=== PATIENT | female | born 1990 | race Asian ===

== ENCOUNTER 2019-01-24 05:36 | Inpatient (IN) | payer MEDICAID, OTHER ==
[~2019-01-24] VITALS: Ht 167.6 cm; Wt 95.2 kg
[2019-01-24] MEDS ORDERED: ONDANSETRON 4 MG INJ IV STA (07:30)
[2019-01-24] MEDS ORDERED: SODIUM CHLORIDE 0.9% 1L BAG IV* STA (07:30)
[2019-01-24] MEDS ORDERED: morphine 4 MG/ML VIAL IV STA ×2 (07:30→08:38)
--- NOTE | 2019-01-24 08:38 | ERD ---
ER Documentation Chief Complaint Chief Complaint abscess back of neck x 4 days. HPI This is a 28-year-old female with a past medical history of insulin-dependent diabetes mellitus who is presenting with fever, chills, palpitations and neck pain related to redness and swelling to the back of the neck. She is concerned that she could have an abscess to the back of the neck. Her symptoms started 4 days ago. The patient does endorse nausea with multiple episodes of nonbilious nonbloody vomiting. She does not endorse any abdominal pain or diarrhea. She endorses feeling dehydrated and thirsty. She denies any polyuria or dysuria or hematuria or urgency or frequency. She does not endorse any alleviating or exacerbating factors. The patient has had no headache or vision changes. The patient does not endorse back pain. The patient denies lightheadedness or dizziness. The patient has had no chest pain or trouble breathing. The patient has had no focal deficits. The patient has had no weakness or numbness or tingling to the face or extremities. ROS All systems reviewed and are negative except as per history of present illness. Medications Home Meds Reported Medications Insulin Glargine,Hum.rec.anlog (Basaglar Kwikpen U-100) 100 Unit/1 Ml Insuln.pen, 125 UNIT SC QHS, EA 01/24/19 Insulin Lispro (Humalog Kwikpen) 200 Unit/1 Ml Insuln.pen, 20-30 UNIT SQ WITH MEALS BEDTIME, EA 01/24/19 Allergies Allergies: Coded Allergies: No Known Allergy (Unverified , 01/24/19) PMhx/Soc History of Surgery: No Anesthesia Reaction: No Hx Neurological Disorder: No Hx Respiratory Disorders: No Hx Cardiac Disorders: No Hx Psychiatric Problems: No Hx Miscellaneous Medical Probl: Yes (Insulin-dependent diabetes) Hx Alcohol Use: No Hx Substance Use: No Hx Tobacco Use: No Smoking Status: Never smoker FmHx Family History: No diabetes Physical Exam Vitals Vital Signs Date Temp Pulse Resp B/P (MAP) Pulse Ox O2 O2 Flow FiO2 Time Delivery Rate 01/24/19 99.0 145 18 130/92 100 Room Air 12:00 (105) 01/24/19 99.0 149 20 92/70 (77) 100 Room Air 11:00 01/24/19 98.6 141 20 144/95 100 Room Air 10:00 (111) 01/24/19 98.4 144 22 136/84 100 Room Air 09:00 (101) 01/24/19 150 06:47 01/24/19 98.4 145 18 143/90 97 05:49 (107) Physical Exam Const: Emotional distress, well-developed, well-nourished Head: Normocephalic, Atraumatic Eyes: Normal Conjunctiva. Extraocular movements intact. ENT: Normal External Ears, Nose and Mouth. Neck: Full range of motion. No meningismus. Resp: Clear to auscultation bilaterally, No wheezes, rales or rhonchi Cardio: Regular rhythm. Tachycardia. No murmurs, rubs or gallops Abd: Soft, non tender, non distended. Normal bowel sounds Skin: No petechiae or rashes Back: No midline tenderness. No CVA tenderness Ext: No cyanosis, or edema. 5 cm erythematous indurated purulent posterior neck mass without fluctuance. Neur: Awake and alert, oriented 4. Cranial nerves intact. No facial droop. Normal strength, sensation and coordination. Psych: Anxious Result Diagram: 01/24/19 0830 01/24/19 1140 Results 24 hrs Laboratory Tests Test 01/24/19 05:55 01/24/19 07:30 01/24/19 07:50 01/24/19 07:56 Bedside Glucose 311 mg/dL 393 mg/dL Blood Gas Blood venous Specimen Source Arterial Blood 01/24/2019 8:24 Date Drawn :58 AM Arterial Blood VENOUS LINE Gas Puncture Site Schuyler Test N/A Venous Blood pH 7.070 Venous Blood 26.4 mmHG pCO2 (Temp Corrected ) Venous Blood 34.6 mmHG pO2 (Temp Corrected ) Venous Blood 7.5 mmol/L HCO3 Venous Blood 63.8 mmHG Oxygen Saturation Venous Blood -21.3 mmol/L Base Excess Venous Blood 15.9 g/dl Total Hemoglobin Venous Blood 63.1 % Oxyhemoglobin Venous Blood 0.1 % Methemoglobin Carboxyhemoglob 1.0 % in Blood Gas 37.0 C Temperature Blood Gas ROOM AIR Modality FiO2 21.0 % Blood Gas DR. LARSEN Critical Value Read Back Blood Gas Keisha Notified Whom Blood Gas 01/24/2019 8:31 Notified Time :29 AM Urine Color YELLOW Urine Clarity SLIGHTLY CLOUD Y Urine pH 5.0 Urine Specific 1.026 [place] Urine Ketones 2+ mg/dL Urine Nitrite NEGATIVE mg/dL Urine Bilirubin NEGATIVE mg/dL Urine NEGATIVE mg/dL Urobilinogen Urine Leukocyte NEGATIVE James/u Esterase l Urine 1 /HPF Microscopic RBC Urine 2 /HPF Microscopic WBC Urine Squamous FEW /HPF Epithelial Cell s Urine Mucus FEW /HPF Urine 1+ mg/dL Hemoglobin Urine Glucose 3+ mg/dL Urine Total 3+ mg/dl Protein Test 01/24/19 08:01 01/24/19 08:30 01/24/19 09:06 01/24/19 09:15 POC Beta HCG, NEGATIVE Qualitative White Blood 25.8 10^3/ul Count Red Blood Count 5.09 10^6/ul Hemoglobin 14.2 g/dl Hematocrit 45.1 % Mean 88.6 fl Corpuscular Volume Mean 27.9 pg Corpuscular Hemoglobin Mean 31.5 g/dl Corpuscular Hemoglobin Conc ent Red Cell 11.7 % Distribution Width Platelet Count 426 10^3/UL Mean Platelet 9.9 fl Volume Immature 2.100 % Granulocytes % Neutrophils % 87.8 % Lymphocytes % 4.5 % Monocytes % 5.3 % Eosinophils % 0.0 % Basophils % 0.3 % Nucleated Red 0.0 /100WBC Blood Cells % Immature 0.530 10^3/ul Granulocytes # Neutrophils # 22.7 10^3/ul Lymphocytes # 1.2 10^3/ul Monocytes # 1.4 10^3/ul Eosinophils # 0.0 10^3/ul Basophils # 0.1 10^3/ul Nucleated Red 0.0 10^3/ul Blood Cells # Prothrombin 13.4 Sec Time Prothrombin 1.0 Time Ratio INR 1.01 International Normalized Rati o Sodium Level 135 mmol/L Potassium Level 5.4 mmol/L Chloride Level 105 mmol/L Carbon Dioxide 7 mmol/L Level Anion Gap 23 Blood Urea 10 mg/dl Nitrogen Creatinine 0.69 mg/dl Est Glomerular > 60 mL/min Filtrat Rate mL/min Glucose Level 390 mg/dl Hemoglobin A1c 10.1 % Calcium Level 9.6 mg/dl Phosphorus 3.2 mg/dl Level Magnesium Level 2.1 mg/dl Total Bilirubin 0.3 mg/dl Direct 0.00 mg/dl Bilirubin Indirect 0.3 mg/dl Bilirubin Aspartate Amino 13 IU/L Transf (AST/SGO T) Alanine 15 IU/L Aminotransferas e (ALT/SGPT) Alkaline 119 IU/L Phosphatase Troponin I < 0.012 ng/ml Total Protein 9.7 g/dl Albumin 4.8 g/dl Globulin 4.90 g/dl Albumin/Globuli 0.97 n Ratio POC Venous 1.5 mmol/L 1.4 mmol/L Lactate Test 01/24/19 11:15 01/24/19 11:40 01/24/19 13:00 01/24/19 13:15 Blood Gas Blood venous Blood venous Specimen Source Arterial Blood 01/24/2019 11:39 01/24/2019 1:44 Date Drawn :40 AM :19 PM Arterial Blood VENOUS LINE VENOUS LINE Gas Puncture Site Schuyler Test N/A N/A Venous Blood pH 7.057 7.074 Venous Blood 21.7 mmHG 22.7 mmHG pCO2 (Temp Corrected ) Venous Blood 66.3 mmHG 47.4 mmHG pO2 (Temp Corrected ) Venous Blood 6.0 mmol/L 6.5 mmol/L HCO3 Venous Blood 91.5 mmHG 82.1 mmHG Oxygen Saturation Venous Blood -22.8 mmol/L -22.0 mmol/L Base Excess Venous Blood 15.3 g/dl 14.5 g/dl Total Hemoglobin Venous Blood 90.0 % 81.2 % Oxyhemoglobin Venous Blood 0.3 % 0.3 % Methemoglobin Carboxyhemoglob 1.3 % 0.8 % in Blood Gas 37.0 C 37.0 C Temperature Blood Gas ROOM AIR ROOM AIR Modality FiO2 21.0 % 21.0 % Blood Gas DR. CHAVA LARSEN Critical Value Read Back Blood Gas Keisha SONG Notified Whom Blood Gas 01/24/2019 11:45 01/24/2019 1:57 Notified Time :04 AM :46 PM Sodium Level 138 mmol/L Potassium Level 4.8 mmol/L Chloride Level 109 mmol/L Carbon Dioxide 7 mmol/L Level Anion Gap 22 Blood Urea 10 mg/dl Nitrogen Creatinine 0.51 mg/dl Est Glomerular > 60 mL/min Filtrat Rate mL/min Glucose Level 359 mg/dl Lactic Acid 0.8 mmol/L Level Calcium Level 9.1 mg/dl Phosphorus 3.0 mg/dl Level Magnesium Level 2.1 mg/dl Urine Color STRAW Urine Clarity CLEAR Urine pH 5.0 Urine Specific 1.020 [place] Urine Ketones 2+ mg/dL Urine Nitrite NEGATIVE mg/dL Urine Bilirubin NEGATIVE mg/dL Urine NEGATIVE mg/dL Urobilinogen Urine Leukocyte NEGATIVE James/u Esterase l Urine 1 /HPF Microscopic RBC Urine 0 /HPF Microscopic WBC Urine Mucus FEW /HPF Urine 1+ mg/dL Hemoglobin Urine Glucose 3+ mg/dL Urine Total 2+ mg/dl Protein Current Medications Medications Dose Sig/Olivia Start Time Status Last (Trade) Ordered Route PRN Stop Time Admin Dose Reason Admin Morphine 4 mg ONCE STAT 01/24/19 DC 01/24/19 Sulfate IV 07:30 08:14 (morphine) 01/24/19 07:37 Ondansetron 4 mg ONCE STAT 01/24/19 DC 01/24/19 HCl (Zofran IV 07:30 08:14 Inj) 01/24/19 07:37 Sodium 2,690 ml BOLUS OVER 2 01/24/19 DC 01/24/19 Chloride HOURS STAT 07:30 08:14 (NS) IV* 01/24/19 07:37 Morphine 4 mg ONCE STAT 01/24/19 DC 01/24/19 Sulfate IV 08:38 08:41 (morphine) 01/24/19 08:39 Lidocaine 5 ml ONCE ONCE 01/24/19 DC (Xylocaine SC 09:00 1% (Mpf)) 01/24/19 09:01 Vancomycin 250 ml @ ONCE ONCE 01/24/19 DC 01/24/19 HCl 125 mls/hr IVPB 11:00 13:46 01/24/19 12:59 Potassium 1,000 ml @ Q0M IV 01/24/19 Chloride/Sodi 0 mls/hr 09:15 um Chloride Potassium 1,000 ml @ Q0M IV 01/24/19 Chloride/Dext 0 mls/hr 09:15 alphonse/ Sod Cl Potassium 1,000 ml @ Q0M IV 01/24/19 Chloride/Sodi 0 mls/hr 09:15 um Chloride Potassium 1,000 ml @ Q0M IV 01/24/19 Chloride/Dext 0 mls/hr 09:15 alphonse/ Sod Cl Sodium 1,000 ml @ Q0M IV 01/24/19 Chloride 0 mls/hr 09:15 1,000 ml @ Q0M IV 01/24/19 Dextrose/Sodi 0 mls/hr 09:15 um Chloride Insulin 101 ml @ ER DKA 01/24/19 Human 9.05 mls/hr PROTOCOL IV 09:30 Regular 100 unit/ Sodium Chloride Lactated 900 ml @ ONCE ONCE 01/24/19 DC 01/24/19 Ringer's 900 mls/hr IV 09:30 13:46 01/24/19 10:29 HYPOGLYCEM 01/24/19 Miscellaneous HYPOGLYCEMIA PROTOCOL PRN 09:30 TREATMENT XX Information .HYPOGLYCEMIA (* PROTOCOL Miscellaneous Pharmacy Order) Dextrose 50 ml Q15M PRN 01/24/19 (D50w IV 09:30 Syringe) .DECREASED GLUCOSE Dextrose 25 ml Q15M PRN 01/24/19 (D50w IV 09:30 Syringe) .DECREASED GLUCOSE Cefepime HCl 50 ml @ ONCE ONCE 01/24/19 DC 01/24/19 100 mls/hr IVPB 10:00 10:10 01/24/19 10:29 IV Flush 10 ml STK-MED 01/24/19 DC (NS 10 ml) ONCE .ROUTE 09:18 01/24/19 09: Sodium 0 ml @ ud STK-MED 01/24/19 DC Chloride ONCE .ROUTE 09:01/24/19 09:19 Iohexol 150 ml STK-MED 01/24/19 DC (Omnipaque ONCE .ROUTE 09: 300mg/ ml) 01/24/19 09:19 Ondansetron 4 mg ER BRIDGE 01/24/19 HCl (Zofran PRN IV 10:30 Inj) NAUSEA/VOMITI 01/25/19 10:29 NG 650 mg ER BRIDGE 01/24/19 Acetaminophen PRN PO 10:30 (Tylenol .MILD PAIN 01/25/19 10:29 Tab) 1-3 OR TEMP Dextrose 50 ml Q15M PRN 01/24/19 UNV (D50w IV For BS 50 11:00 Syringe) or less Dextrose 25 ml Q15M PRN 01/24/19 UNV (D50w IV BS 11:00 Syringe) between 50-70 Diagnostic 1 ea Q1H XX 01/24/19 UNV Test (Pha) 11:00 (Accu-Chek) HYPOGLYCEM 01/24/19 UNV Miscellaneous HYPOGLYCEMIA PROTOCOL PRN 11:00 TREATMENT XX Information Hypoglycemia (* (BS < 70) Miscellaneous Pharmacy Order) Potassium 1,000 ml @ Q0M IV 01/24/19 UNV Chloride/Sodi 0 mls/hr 10:52 um Chloride Potassium 1,000 ml @ Q0M IV 01/24/19 UNV Chloride/Dext 0 mls/hr 10:52 alphonse/ Sod Cl Potassium 1,000 ml @ Q0M IV 01/24/19 UNV Chloride/Sodi 0 mls/hr 10:52 um Chloride Potassium 1,000 ml @ Q0M IV 01/24/19 UNV Chloride/Dext 0 mls/hr 10:52 alphonse/ Sod Cl Sodium 1,000 ml @ Q0M IV 01/24/19 UNV Chloride 0 mls/hr 10:52 1,000 ml @ Q0M IV 01/24/19 UNV Dextrose/Sodi 0 mls/hr 10:52 um Chloride Insulin 101 ml @ DKA 01/24/19 UNV Human 9.05 mls/hr PROTOCOL IV 11:00 Regular 100 unit/ Sodium Chloride Please ONCE ONCE 01/24/19 UNV Miscellaneous discontinue XX 11:00 ... 01/24/19 11:01 Information (* Miscellaneous Pharmacy Order) IV Flush 3 ml PER 01/24/19 UNV (NS 3 ml) PROTOCOL IV 11:00 Ondansetron 4 mg Q6H PRN 01/24/19 UNV HCl (Zofran IV 11:00 Inj) NAUSEA/VOMITI NG 650 mg Q6H PRN 01/24/19 UNV Acetaminophen PO .PAIN 1-3 11:00 (Tylenol OR TEMP Tab) 1 tab Q6H PRN 01/24/19 UNV Acetaminophen PO .PAIN 4-6 11:00 / Hydrocodone Bitart ([place] (5/325)) Morphine 2 mg Q4H PRN 01/24/19 UNV Sulfate IV .PAIN 11:00 (morphine) 7-10 Famotidine 20 mg Q12 IV 01/24/19 UNV (Pepcid Iv) 21:00 Vancomycin VANCOMYCIN PER 01/24/19 UNV HCl (Vanco PER PHARMACY PROTOCOL XX 11:30 Iv Per Pharmacy) Piperacillin 100 ml @ Q6 IVPB 01/24/19 UNV Sod/ 200 mls/hr 12:00 Tazobactam Sod Procedures/MDM MDM The patient's presentation warrants further investigation. Previous medical records, if available, were reviewed. LABS The patient's laboratory testing was obtained and reviewed. No emergent treatment was required unless described below. CBC: Leukocytosis, concerning for a systemic infection. Leukocytosis, likely reactive. No E/o anemia Chemistry: Severe anion gap metabolic acidosis in the setting of hyperglycemia, concerning for DKA. Mild hyperkalemia, does not require emergent treatment. No E/o renal failure or liver disease. PT/INR: No E/o significant coagulopathy Lactate: No E/o severe sepsis Troponin: No E/o acute ischemia Urine: No E/o acute infection or hematuria. Glucosuria and ketonuria. EKG EKG read by me: Rate/Rhythm: Sinus tachycardia at 138 bpm Intervals: Normal [place]: Normal Impression: No evidence of acute ischemia. Sinus tachycardia. IMAGING Imaging and Radiology interpretation reviewed. CXR FINDINGS: The lungs are clear. There is no pleural effusion or pneumothorax. The cardiac and mediastinal contours are within normal limits. IMPRESSION: No acute pulmonary abnormality. Electronically viewed and signed by Physician Zeinab on 01/24/2019 09:58 CT soft tissue neck FINDINGS: There is focal soft tissue swelling with subcutaneous stranding and overlying skin thickening at the posterior mid neck centered at the midline. A discrete fluid collection is not seen. No soft tissue gas or radiopaque foreign body is seen. The pharynx, and larynx are unremarkable. The thyroid is grossly unremarkable. The parapharyngeal and retropharyngeal spaces are clear. The par otid and submandibular glands are unremarkable. The imaged dyer and washer spaces are symmetric. The skull base is intact. The perivertebral space appears unremarkable. The orbits are unremarkable. The oral cavity structures appear unremarkable. The imaged mastoids and paranasal sinuses are grossly clear. The osseous structures are intact. The lung apices are clear. IMPRESSION: Focal soft tissue swelling/stranding at the posterior neck, without discrete fluid collection to suggest abscess seen on this noncontrast evaluation at this time. If there is persistent clinical concern, consider follow-up with ultrasound, or contrast enhanced CT. Electronically viewed and signed by .Shahzad Enriquez MD, on 01/24/2019 11:28 TREATMENT/DISPOSITION The patient's symptoms are concerning for multiple pathologies. The patient appears to be in DKA and was started on the DKA protocol in the emergency department. The patient endorses fever at home. She is tachycardic with a significant leukocytosis, meeting criteria for a systemic inflammatory response syndrome with an infectious source of cellulitis to the back of her neck. I do feel that the patient is septic and requires a full septic work-up. The patient does not have evidence of endorgan damage. She has no lactic acidosis. The pat ient is not in severe sepsis or septic shock. The on-call ENT surgeon, Dr. Calvo, was consulted on the case. He evaluated the patient in the hospital and did not feel that incision and drainage was necessary at this time. It does appear to be in the upper back. If necessary, he recommended consultation with general surgery. I do not feel that this is necessary at this time. The patient had poor IV access. We attempted multiple peripheral lines which were unsuccessful. The PIC team was unavailable in the emergency department and access was immediately necessary. We completed a central line emergently. The risks and benefits of placement were discussed with the patient and she verbally consented. Please see procedure note below. SEPSIS NOTE SIRS Criteria: Tachycardia, leukocytosis Infectious source: Cellulitis End organ damage indicated by: None SEPSIS MANAGEMENT Time to recognize sepsis: 0900. Time to recognize severe sepsis: No severe sepsis at this time. Time to recognize septic shock: No septic shock at this time. 3 HOUR BUNDLE Blood cultures x 2 before abx: Yes 30 ml/kg NS bolus completed Initial lactate 1.5 Repeat lactate 1.4 SEPTIC SHOCK ASSESSMENT: NO lactic acid > 4.0 NO persistent hypotension (SBP < 90 or 40 mmHg drop, MAP < 65) despite 30 L/kg IV fluid bolus Central Line Placement by me: Patient consented, sterilely draped, full prep, gown, glove, mask, time out performed. Anesthesia: 1% lidocaine locally Location: Right internal jugular vein Device: Multiple lumen Technique: Seldinger technique. Secured with suture. Results: Venous return from all ports with easy saline flush. No complications. Guide wire retrieved and disposed of. ED Ultrasound: Central line placed by me using concurrent ultrasound guidance. Chest X-ray 1V Interpreted by me: Central line in SVC but appears to require retraction by approximately 2 cm, Normal soft tissue, No evidence of pneumothorax. Central line was subsequently retracted by 2 cm. CRITICAL CARE Critical care time 35 minutes Emergent fluid management while maintaining close respiratory support. Provision of immediate and broad-spectrum antibiotic therapy. Simultaneous assessment for possible sources in order to direct targeted therapy. Consideration for invasive and chemical support to prevent cardiopulmonary collapse. Critical care time is independent of procedures performed. ADMISSION The patient will be admitted to panel in accordance with the patient's insurance. The patient was accepted by Dr. Olivera at 0920AM. Disclaimer: Inadvertent spelling and grammatical errors are likely due to EHR/dictation software use and do not reflect on the overall quality of patient care. Note that the electronic time recorded on this note does not necessarily reflect the actual time of the patient encounter. Departure Diagnosis: Primary Impression: Sepsis Sepsis type: sepsis due to unspecified organism Qualified Codes: A41.9 - Sepsis, unspecified organism Additional Impressions: Diabetic ketoacidosis Diabetes mellitus type: type 1 Diabetes mellitus complication detail: with out coma Qualified Codes: E10.10 - Type 1 diabetes mellitus with ketoacidosis without coma Cellulitis, neck Tachycardia Leukocytosis Leukocytosis type: unspecified Qualified Codes: D72.829 - Elevated white blood cell count, unspecified Hyperglycemia High anion gap metabolic acidosis Hyperkalemia Ketonuria Thrombocytosis Condition: Critical MELYSSA LARSEN MD Jan 24, 2019 08:38
[2019-01-24] MEDS ORDERED: LIDOCAINE 1% (MPF) 5 ML VIAL SC ONE (09:00)
[2019-01-24] MEDS ORDERED: INSU100I33 SC (09:05)
[2019-01-24] MEDS ORDERED: INSU200I SQ (09:05)
[2019-01-24] MEDS ORDERED: D10/0.45% NACL + KCL 30 MEQ 1,000 ML IV SCH ×2 (09:15→10:52)
[2019-01-24] MEDS ORDERED: NS + KCL 40 MEQ 1,000 ML IV SCH ×2 (09:15→10:52)
[2019-01-24] MEDS ORDERED: D10/0.45% NACL + KCL 40 MEQ 1,000 ML IV SCH ×2 (09:15→10:52)
[2019-01-24] MEDS ORDERED: SOD CHLORIDE 0.9% 1,000 ML IV SCH ×2 (09:15→10:52)
[2019-01-24] MEDS ORDERED: DEXTROSE 10%/0.45% NACL 1,000 ML IV SCH ×2 (09:15→10:52)
[2019-01-24] MEDS ORDERED: NS + KCL 30 MEQ 1,000 ML IV SCH ×2 (09:15→10:52)
[2019-01-24] MEDS ORDERED: SOD CHLORIDE 0.9% 0 ML ONE (09:18)
[2019-01-24] MEDS ORDERED: IOHEXOL 300MG/ML 150 ML BTL ONE (09:18)
[2019-01-24] MEDS ORDERED: INSULIN REGULAR, HUMAN 100 UNIT in SOD CHLORIDE 0.9% 100 ML IV SCH ×4 (09:30→11:00)
[2019-01-24] MEDS ORDERED: LACTATED RINGER'S 900 ML IV ONE (09:30)
[2019-01-24] MEDS ORDERED: DEXTROSE 50% 50 ML SYRINGE IV PRN ×4 (09:30→11:00)
[2019-01-24] MEDS ORDERED: CEFEPIME 1GM/50 ML (PMX) 50 ML IVPB ONE (10:00)
[2019-01-24] MEDS ORDERED: ONDANSETRON 4 MG INJ IV PRN ×2 (10:30→11:00)
[2019-01-24] MEDS ORDERED: ACETAMINOPHEN 325 MG TAB PO PRN ×2 (10:30→11:00)
[2019-01-24] MEDS ORDERED: VANCOMYCIN 1 GM (PMX) 250 ML IVPB ONE (11:00)
[2019-01-24] MEDS ORDERED: NACL 0.9% 3 ML SYG IV SCH (11:00)
[2019-01-24] MEDS: ACCU-CHEK XX SCH ×13 (11:00→23:00)
[2019-01-24] MEDS ORDERED: VANCOMYCIN IV PER PHARMACY XX SCH (11:30)
--- NOTE | 2019-01-24 12:37 | HP ---
Date/Time of Note Date/Time of Note DATE: 01/24/19 TIME: 12:37 Assessment/Plan VTE Prophylaxis Pharmacological prophylaxis: other Lines/Catheters IV Catheter Type (from Nrsg): Central Line Central line still needed: Yes Assessment/Plan Hospital Course Patient is a female the past medical history significant for insulin-dependent diabetes mellitus who presents to [facility] for neck pain with drainage. Patient states that she has had neck pain due to a pustular mass for approximately 4 days that is getting worse. Patient stated that this originally began with as a pimple. Patient currently is extremely weak and cannot speak in extensive sentences however is alert and oriented. Patient denies chest pain, shortness of breath, headache, abdominal pain, leg pain. Objective Physical exam General: Patient is laying in bed and answers questions appropriately Mentation: Patient is alert and oriented 4, Head: Normocephalic atraumatic Eyes: EOMI, pupils reactive to light Neck: Supple, nontender, midline Respiratory: Clear to auscultation bilaterally Cardiovascular: regular rate, no obvious murmurs Gastrointestinal: non-tender to palpation, bowel sounds heard. Neurological: Moves all extremities spontaneously Skin: Posterior neck erythema and swelling with mild drainage Assessment and plan Diabetic ketoacidosis -DKA protocol -ICU -Patient's initial ABG is mildly worse as there is no IV access so could not initiate DKA protocol, obtain central line and will initiate now Posterior neck cellulitis -ENT evaluated patient, no procedure necessary -CT not showing any abscess, just significant cellulitis -Broad-spectrum antibiotics -Infectious disease consulted Generalized weakness -Secondary to above DKA Disposition -Admit to ICU for DKA and continue broad-spectrum antibiotics for posterior neck cellulitis Result Diagram: 01/24/19 0830 01/24/19 1140 Results 24hrs Laboratory Tests Test 01/24/19 05:55 01/24/19 07:30 01/24/19 07:50 01/24/19 07:56 Bedside Glucose 311 H 393 H Blood Gas Blood venous Specimen Source Arterial Blood 01/24/2019 8:24: Date Drawn 58 AM Arterial Blood VENOUS LINE Gas Puncture Site Schuyler Test N/A Venous Blood pH 7.070 *L Venous Blood 26.4 L pCO2 (Temp Corrected ) Venous Blood 34.6 H pO2 (Temp Corrected ) Venous Blood 7.5 L HCO3 Venous Blood 63.8 Oxygen Saturation Venous Blood -21.3 L Base Excess Venous Blood 15.9 Total Hemoglobin Venous Blood 63.1 Oxyhemoglobin Venous Blood 0.1 Methemoglobin Carboxyhemoglob 1.0 in Blood Gas 37.0 Temperature Blood Gas ROOM AIR Modality FiO2 21.[address] LARSEN Critical Value Read Back Blood Gas Keisha Notified Whom Blood Gas 01/24/2019 8:31: Notified Time 29 AM Urine Color YELLOW Urine Clarity SLIGHTLY CLOUD Y A Urine pH 5.0 Urine Specific 1.026 [place] Urine Ketones 2+ H Urine Nitrite NEGATIVE Urine Bilirubin NEGATIVE Urine NEGATIVE Urobilinogen Urine Leukocyte NEGATIVE Esterase Urine 1 Microscopic RBC Urine 2 Microscopic WBC Urine Squamous FEW Epithelial Cell s Urine Mucus FEW A Urine 1+ H Hemoglobin Urine Glucose 3+ H Urine Total 3+ H Protein Test 01/24/19 08:01 01/24/19 08:30 01/24/19 09:06 01/24/19 09:15 POC Beta HCG, NEGATIVE Qualitative White Blood 25.8 H Count Red Blood Count 5.09 Hemoglobin 14.2 Hematocrit 45.1 Mean 88.6 Corpuscular Volume Mean 27.9 L Corpuscular Hemoglobin Mean 31.5 L Corpuscular Hemoglobin Conc ent Red Cell 11.7 Distribution Width Platelet Count 426 H Mean Platelet 9.9 Volume Immature 2.100 H Granulocytes % Neutrophils % 87.8 H Lymphocytes % 4.5 L Monocytes % 5.3 Eosinophils % 0.0 Basophils % 0.3 Nucleated Red 0.0 Blood Cells % Immature 0.530 H Granulocytes # Neutrophils # 22.7 H Lymphocytes # 1.2 Monocytes # 1.4 H Eosinophils # 0.0 Basophils # 0.1 Nucleated Red 0.0 Blood Cells # Prothrombin 13.4 Time Prothrombin 1.0 Time Ratio INR 1.01 International Normalized Rati o Sodium Level 135 Potassium Level 5.4 H Chloride Level 105 Carbon Dioxide 7 *L Level Anion Gap 23 H Blood Urea 10 Nitrogen Creatinine 0.69 Est Glomerular > 60 Filtrat Rate mL/min Glucose Level 390 H Hemoglobin A1c 10.1 H Calcium Level 9.6 Phosphorus 3.2 Level Magnesium Level 2.1 Total Bilirubin 0.3 Direct 0.00 Bilirubin Indirect 0.3 Bilirubin Aspartate Amino 13 L Transf (AST/SGO T) Alanine 15 Aminotransferas e (ALT/SGPT) Alkaline 119 Phosphatase Troponin I < 0.012 Total Protein 9.7 H Albumin 4.8 Globulin 4.90 H Albumin/Globuli 0.97 n Ratio POC Venous 1.5 1.4 Lactate Test 01/24/19 11:15 01/24/19 11:40 Blood Gas Blood venous Specimen Source Arterial Blood 01/24/2019 11:39 Date Drawn :40 AM Arterial Blood VENOUS LINE Gas Puncture Site Schuyler Test N/A Venous Blood pH 7.057 *L Venous Blood 21.7 L pCO2 (Temp Corrected ) Venous Blood 66.3 H pO2 (Temp Corrected ) Venous Blood 6.0 L HCO3 Venous Blood 91.5 H Oxygen Saturation Venous Blood -22.8 L Base Excess Venous Blood 15.3 Total Hemoglobin Venous Blood 90.0 Oxyhemoglobin Venous Blood 0.3 Methemoglobin Carboxyhemoglob 1.3 in Blood Gas 37.0 Temperature Blood Gas ROOM AIR Modality FiO2 21.[address] LARSEN Critical Value Read Back Blood Gas Keisha Notified Whom Blood Gas 01/24/2019 11:45 Notified Time :04 AM Sodium Level 138 Potassium Level 4.8 Chloride Level 109 Carbon Dioxide 7 *L Level Anion Gap 22 H Blood Urea 10 Nitrogen Creatinine 0.51 Est Glomerular > 60 Filtrat Rate mL/min Glucose Level 359 H Lactic Acid 0.8 Level Calcium Level 9.1 Phosphorus 3.0 Level Magnesium Level 2.1 HPI/ROS Admit Date/Time Admit Date/Time PMH/Family/Social Past Medical History Medications Current Medications Vancomycin HCl 250 ml @ 125 mls/hr ONCE ONCE IVPB ; Start 01/24/19 at 11:00; Stop 01/24/19 at 12:59 Potassium Chloride/Sodium Chloride 1,000 ml @ 0 mls/hr Q0M IV ; Start 01/24/19 at 09:15 Potassium Chloride/Dextrose/ Sod Cl 1,000 ml @ 0 mls/hr Q0M IV ; Start 01/24/19 at 09:15 Potassium Chloride/Sodium Chloride 1,000 ml @ 0 mls/hr Q0M IV ; Start 01/24/19 at 09:15 Potassium Chloride/Dextrose/ Sod Cl 1,000 ml @ 0 mls/hr Q0M IV ; Start 01/24/19 at 09:15 Sodium Chloride 1,000 ml @ 0 mls/hr Q0M IV ; Start 01/24/19 at 09:15 Dextrose/Sodium Chloride 1,000 ml @ 0 mls/hr Q0M IV ; Start 01/24/19 at 09:15 Insulin Human Regular 100 unit/ Sodium Chloride 101 ml @ 9.05 mls/hr ER DKA PROTOCOL IV ; Start 01/24/19 at 09:30 Miscellaneous Information (* Miscellaneous Pharmacy Order) HYPOGLYCEMIA TREATMEN T HYPOGLYCEM PROTOCOL PRN XX .HYPOGLYCEMIA PROTOCOL; Start 01/24/19 at 09:30 Dextrose (D50w Syringe) 50 ml Q15M PRN IV .DECREASED GLUCOSE; Start 01/24/19 at 09:30 Dextrose (D50w Syringe) 25 ml Q15M PRN IV .DECREASED GLUCOSE; Start 01/24/19 at 09:30 Ondansetron HCl (Zofran Inj) 4 mg ER BRIDGE PRN IV NAUSEA/VOMITING; Start 01/24/19 at 10:30; Stop 01/25/19 at 10:29 Acetaminophen (Tylenol Tab) 650 mg ER BRIDGE PRN PO .MILD PAIN 1-3 OR TEMP; Start 01/24/19 at 10:30; Stop 01/25/19 at 10:29 Dextrose (D50w Syringe) 50 ml Q15M PRN IV For BS 50 or less; Start 01/24/19 at 11:00; Status UNV Dextrose (D50w Syringe) 25 ml Q15M PRN IV BS between 50-70; Start 01/24/19 at 11:00; Status UNV Diagnostic Test (Pha) (Accu-Chek) 1 ea Q1H XX ; Start 01/24/19 at 11:00; Status UNV Miscellaneous Information (* Miscellaneous Pharmacy Order) HYPOGLYCEMIA TREATMENT HYPOGLYCEM PROTOCOL PRN XX Hypoglycemia (BS < 70); Start 01/24/19 at 11:00; Status UNV Potassium Chloride/Sodium Chloride 1,000 ml @ 0 mls/hr Q0M IV ; Start 01/24/19 at 10:52; Status UNV Potassium Chloride/Dextrose/ Sod Cl 1,000 ml @ 0 mls/hr Q0M IV ; Start 01/24/19 at 10:52; Status UNV Potassium Chloride/Sodium Chloride 1,000 ml @ 0 mls/hr Q0M IV ; Start 01/24/19 at 10:52; Status UNV Potassium Chloride/Dextrose/ Sod Cl 1,000 ml @ 0 mls/hr Q0M IV ; Start 01/24/19 at 10:52; Status UNV Sodium Chloride 1,000 ml @ 0 mls/hr Q0M IV ; Start 01/24/19 at 10:52; Status UNV Dextrose/Sodium Chloride 1,000 ml @ 0 mls/hr Q0M IV ; Start 01/24/19 at 10:52; Status UNV Insulin Human Regular 100 unit/ Sodium Chloride 101 ml @ 9.05 mls/hr DKA PROTOCOL IV ; Start 01/24/19 at 11:00; Status UNV Miscellaneous Information (* Miscellaneous Pharmacy Order) Please discontinue ... ONCE ONCE XX ; Start 01/24/19 at 11:00; Stop 01/24/19 at 11:01; Status UNV IV Flush (NS 3 ml) 3 ml PER PROTOCOL IV ; Start 01/24/19 at 11:00; Status UNV Ondansetron HCl (Zofran Inj) 4 mg Q6H PRN IV NAUSEA/VOMITING; Start 01/24/19 at 11:00; Status UNV Acetaminophen (Tylenol Tab) 650 mg Q6H PRN PO .PAIN 1-3 OR TEMP; Start 01/24/19 at 11:00; Status UNV Acetaminophen/ Hydrocodone Bitart ([place] (5/325)) 1 tab Q6H PRN PO .PAIN 4-6; Start 01/24/19 at 11:00; Status UNV Morphine Sulfate (morphine) 2 mg Q4H PRN IV .PAIN 7-10; Start 01/24/19 at 11:00; Status UNV Famotidine (Pepcid Iv) 20 mg Q12 IV ; Start 01/24/19 at 21:00; Status UNV Vancomycin HCl (Vanco Iv Per Pharmacy) VANCOMYCIN PER PHARMACY PER PROTOCOL XX ; Start 01/24/19 at 11:30; Status UNV Piperacillin Sod/ Tazobactam Sod 100 ml @ 200 mls/hr Q6 IVPB ; Start 01/24/19 at 12:00; Status UNV Coded Allergies: No Known Allergy (Unverified , 01/24/19) Social History Smoking Status: Never smoker Exam/Review of Systems Vital Signs Vitals Vital Signs Date Temp Pulse Resp B/P (MAP) Pulse Ox O2 O2 Flow FiO2 Time Delivery Rate 01/24/19 99.0 145 18 130/92 100 Room Air 12:00 (105) IRVIN LAZARO Jan 24, 2019 12:37
--- NOTE | 2019-01-24 13:45 | CONS ---
DATE OF ADMISSION: 01/24/2019 DATE OF CONSULTATION: 01/24/2019 TYPE OF CONSULTATION: Infectious disease. REASON FOR CONSULTATION: Antibiotic management. HISTORY OF PRESENT ILLNESS: Katie Noel is a 28-year-old female who comes in with an abscess in the back of her neck of 4 days' duration. She thinks that this may have been caused by an insect bite. PAST MEDICAL HISTORY: Negative. PAST SURGICAL HISTORY: None. SOCIAL HISTORY: She does not smoke, drink or abuse drugs. ALLERGIES: NONE TO PENICILLIN, SULFA OR FOODS. MEDICATIONS: Per chart. REVIEW OF SYSTEMS: As per HPI. PHYSICAL EXAMINATION: GENERAL: The patient is awake, responsive, in no acute distress. VITAL SIGNS: Stable. She is afebrile. SKIN: Without generalized rash. HEENT: Within normal limits. NECK: She has an abscess with tenderness in the back of her neck. No meningismus. CHEST: Decreased breath sounds at the bases. HEART: Without murmur or gallop. ABDOMEN: Soft, somewhat obese, nontender, without organosplenomegaly or masses. EXTREMITIES: Without cyanosis, clubbing, or edema. RECTAL AND GENITAL: Deferred. NEUROLOGICAL: No focal neurological abnormalities. Her urine is negative. HOSPITAL COURSE: White count is 25.8, H and H of 14.2/45.1, platelet count of 426,000 with 88% neutr ophils. Her anion gap is 23 with a CO2 of 7. BUN and creatinine is 10/0.69, glucose is 390. So the patient is most definitely diabetic. AST 13, ALT 15. Urine is negative for nitrite and leukocyte e sterase. Hemoglobin A1c is 10.1. A soft tissue neck CT shows focal soft tissue swelling, stranding at the posterior neck without discrete fluid collection to suggest abscess seen on this noncontrast e valuation at this time. Follow up with ultrasound or contrast mass CT was recommended. The patient was begun on vancomycin and Zosyn to which I concur and ENT has been called to see the camron rocha in consultation. I will dictate my findings to the hospitalist. Dictated By: LARY MARTION MD, JD/DANIEL Conf#: [id number] DID#: [id number]
[2019-01-24] MEDS: morphine 2 MG INJ IV PRN ×2 (14:55→21:26)
[2019-01-24] MEDS ORDERED: VANCOMYCIN 750 MG (PMX) 250 ML IVPB ONE (16:00)
[2019-01-24] MEDS: PIPER-TAZO 3.375 GM IV (PMX) 100 ML IVPB SCH ×2 (16:06→19:46)
[2019-01-24] MEDS: FAMOTIDINE 20 MG INJ IV SCH (21:26)
[2019-01-24] MEDS ORDERED: INSULIN GLARGINE [LANTus] (100 UNITS/ML) SYG SC ONE (22:30)
[2019-01-25] MEDS: VANCOMYCIN 1.25 GM/NS 250 ML 250 ML IVPB SCH ×3 (00:52→16:10)
[2019-01-25] MEDS: HYDROCODONE/APAP (5/325) TAB PO PRN ×3 (00:54→20:16)
[2019-01-25] MEDS: ACCU-CHEK XX SCH ×2 (01:00)
[2019-01-25] MEDS ORDERED: GLUCOSE GEL 15 GRAM TUBE PO PRN ×2 (03:00)
[2019-01-25] MEDS ORDERED: SOD CHLORIDE 0.9% 500 ML IV ONE (03:00)
[2019-01-25] MEDS ORDERED: DEXTROSE 50% 50 ML SYRINGE IV PRN ×2 (03:00)
[2019-01-25] MEDS ORDERED: GLUCOSE GEL 15 GRAM TUBE BUCCAL PRN (03:00)
[2019-01-25] MEDS ORDERED: GLUCAGON 1 MG INJ IM PRN (03:00)
[2019-01-25 03:16] VITALS: Ht 167.6 cm; Wt 95.2 kg
[2019-01-25 03:30] VITALS: BP 119/68; RESP 20
[2019-01-25] MEDS: SOD CHLORIDE 0.9% 1,000 ML IV SCH ×3 (04:30→22:42)
[2019-01-25] MEDS: PIPER-TAZO 3.375 GM IV (PMX) 100 ML IVPB SCH ×5 (05:40→23:01)
[2019-01-25 07:35] VITALS: BP 111/62; PULSE 114; RESP 18
[2019-01-25] MEDS ORDERED: INSULIN ASPART [NOVOLOG] 3 ML PEN SC SCH ×2 (07:55→08:00)
[2019-01-25] MEDS: INSULIN ASPART [NOVOLOG] 3 ML PEN SC SCH ×6 (08:01→20:29)
[2019-01-25] MEDS: FAMOTIDINE 20 MG INJ IV SCH (09:05)
--- NOTE | 2019-01-25 10:47 | PN ---
Date/Time of Note Date/Time of Note DATE: 01/25/19 TIME: 10:43 Objective Vitals Vital Signs Date Temp Pulse Resp B/P (MAP) Pulse Ox O2 O2 Flow FiO2 Time Delivery Rate 01/25/19 98.4 114 18 111/62 97 Room Air 07:35 (78) Intake and Output 01/24/19 01/24/19 01/25/19 1515:00 23:00 07:00 IntakeIntake Total 650 ml BalanceBalance 650 ml Results Result Diagram: 01/25/19 0543 01/25/19 0543 Medications Medications Current Medications Dextrose (D50w Syringe) 50 ml Q15M PRN IV For BS 50 or less; Start 01/24/19 at 11:00 Dextrose (D50w Syringe) 25 ml Q15M PRN IV BS between 50-70; Start 01/24/19 at 11:00 IV Flush (NS 3 ml) 3 ml PER PROTOCOL IV ; Start 01/24/19 at 11:00 Ondansetron HCl (Zofran Inj) 4 mg Q6H PRN IV NAUSEA/VOMITING Last administered on 01/24/19at 14:55; Admin Dose 4 MG; Start 01/24/19 at 11:00 Acetaminophen (Tylenol Tab) 650 mg Q6H PRN PO .PAIN 1-3 OR TEMP; Start 01/24/19 at 11:00 Acetaminophen/ Hydrocodone Bitart ([place] (5/325)) 1 tab Q6H PRN PO .PAIN 4-6 Last administered on 01/25/19at 09:05; Admin Dose 1 TAB; Start 01/24/19 at 11:00 Morphine Sulfate (morphine) 2 mg Q4H PRN IV .PAIN 7-10 Last administered on 01/24/19at 21:26; Admin Dose 2 MG; Start 01/24/19 at 11:00 Famotidine (Pepcid Iv) 20 mg Q12 IV Last administered on 01/25/19at 09:05; Admin Dose 20 MG; Start 01/24/19 at 21:00 Vancomycin HCl (Vanco Iv Per Pharmacy) VANCOMYCIN PER PHARMACY PER PROTOCOL XX ; Start 01/24/19 at 11:30 Piperacillin Sod/ Tazobactam Sod 100 ml @ 200 mls/hr Q6 IVPB Last administered on 01/25/19at 05:40; Admin Dose 200 MLS/HR; Start 01/24/19 at 12:00 Vancomycin/Sodium Chloride 250 ml @ 83.333 mls/ hr Q8H IVPB Last administered on 01/25/19at 09:05; Admin Dose 83.333 MLS/HR; Start 01/25/19 at 00:00 Diagnostic Test (Pha) (Accu-Chek) 1 ea 02 XX ; Start 01/26/19 at 02:00 Insulin Aspart (Novolog Insulin Pen) NOVOLOG *MODERATE* ALGORITHM WITH MEALS BEDTIME SC Last administered on 01/25/19at 08:01; Admin Dose 8 UNIT; Start 01/25/19 at 07:55 Sodium Chloride 1,000 ml @ 125 mls/hr Q8H IV Last administered on 01/25/19at 04:30; Admin Dose 125 MLS/HR; Start 01/25/19 at 03:00 Miscellaneous Information 1 ea NOTE XX ; Start 01/25/19 at 03:00 Glucose (Glutose) 15 gm Q15M PRN PO DECREASED GLUCOSE; Start 01/25/19 at 03:00 Glucose (Glutose) 22.5 gm Q15M PRN PO DECREASED GLUCOSE; Start 01/25/19 at 03:00 Dextrose (D50w Syringe) 25 ml Q15M PRN IV DECREASED GLUCOSE; Start 01/25/19 at 03:00 Dextrose (D50w Syringe) 50 ml Q15M PRN IV DECREASED GLUCOSE; Start 01/25/19 at 03:00 Glucagon (Glucagen) 1 mg Q15M PRN IM DECREASED GLUCOSE; Start 01/25/19 at 03:00 Glucose (Glutose) 15 gm Q15M PRN BUCCAL DECREASED GLUCOSE; Start 01/25/19 at 03:00 Miscellaneous Information (*Rx Drug Level Order Reminder*) VANCO TROUGH @ 1,500 ON... 1500 ONCE XX ; Start 01/25/19 at 15:00; Stop 01/25/19 at 15:01 Insulin Aspart (Novolog Insulin Pen) 12 unit WITH MEALS SC ; Start 01/25/19 at 11:50 Insulin Glargine (Lantus) 10 units ONCE ONCE SC ; Start 01/25/19 at 11:00; Stop 01/25/19 at 11:01 Insulin Glargine (Lantus) 50 units DAILY@2000 SC ; Start 01/25/19 at 20:00 Lines/Catheters IV Catheter Type: Lau in Place: No Assessment/Plan Hospital Course Subjective Patient feeling much better than yesterday, states pain is much better controll ed. Objective Physical exam General: Patient is laying in bed and answers questions appropriately Mentation: Patient is alert and oriented 4, Head: Normocephalic atraumatic Eyes: EOMI, pupils reactive to light Neck: Supple, nontender, midline Respiratory: Clear to auscultation bilaterally Cardiovascular: regular rate, no obvious murmurs Gastrointestinal: non-tender to palpation, bowel sounds heard. Neurological: Moves all extremities spontaneously Skin: Posterior neck erythema and swelling Assessment and plan Diabetic ketoacidosis -DKA protocol was stopped overnight, unknown reason why patient was not sent to the ICU from the ER, I did not authorize downgrade. Patient technically still in DKA based on last labs in venous blood draw, will reorder them based on results may need ICU upgrade for continued insulin drip -Until labs come back, continue patient's home regimen of 50 long-acting insulin at night with 10-15 with meals of NovoLog Posterior neck cellulitis -ENT evaluated patient, no procedure necessary -CT not showing any abscess, just significant cellulitis, ultrasound ordered to rule out true abscess -Broad-spectrum antibiotics -Infectious disease consulted Generalized weakness -Secondary to above DKA Disposition -Pending repeat labs to determine if patient is still in DKA. IRVIN LAZARO Jan 25, 2019 10:47
[2019-01-25] MEDS ORDERED: INSULIN GLARGINE [LANTus] (100 UNITS/ML) SYG SC ONE (11:00)
[2019-01-25 11:27] VITALS: BP 132/78; PULSE 122; RESP 20
--- NOTE | 2019-01-25 11:48 | CONS ---
Assessment/Plan Assessment/Plan Hospital Course (Demo Recall) ID PROGRESS NOTE CURRENT ABX: DAY # =>Vanco IV + Zosyn 24H INTERVAL SUMMARY * Resting -- no fevers, significant posterior neck erythema, ?sebaceous cyst vs infected cystic acne ? DIAGNOSTIC IMAGING * 01/24/19 CT NECK: Focal soft tissue swelling/stranding at the posterior neck, without discrete fluid collection to suggest abscess seen on this noncontrast evaluation at this time. If there is persistent clinical concern, consider follow-up with ultrasound, or contrast enhanced CT. * 01/24/19 CXR: 1. No acute pulmonary abnormality. MICRO * 01/24/19 BCx (-) PHYSICAL EXAMINATION: GENERAL: VSS, NAD HEENT: AT, NC, significant posterior neck erythema, ?sebaceous cyst vs infected cystic acne ? NECK: Supple, CHEST: Rise symmetrical HEART: Pulse RRR ABDOMEN: Benign EXTREMITIES: Warm, dry SKIN: No rash, no diaphoresis ID ASSESSMENT 28 yo F admit with: 1. SIRS w/low grade TMax 99.0+, tachycardia, leukocytosis + generalized weakness * 01/24/19 BCx (-) 2. Posterior Neck Cellulitis = Acute 3. Diabetic ketoacidosis on admission 4. Obesity BMI ~34 ABX ALLERGIES: KNDA INVASIVES: PIV CURRENT ABX: DAY # =>Vanco IV + Zosyn ID RECOMMENDATIONS/PLAN: 1. Continue current ABX -- await clinical improvement 2. Once acute cellulitis resolves ~50% can consider PO switch to Clindamycin vs Augmentin 3. Check MRSA Nares . Consultation Date/Type/Reason Admit Date/Time Jan 24, 2019 at 10:14 Initial Consult Date Date/Time of Note DATE: 01/25/19 TIME: 11:48 Exam/Review of Systems Exam Vitals Vital Signs Date Temp Pulse Resp B/P (MAP) Pulse Ox O2 O2 Flow FiO2 Time Delivery Rate 01/25/19 98.0 122 20 132/78 98 Room Air 11:27 (96) Intake and Output 01/24/19 01/24/19 01/25/19 1515:00 23:00 07:00 IntakeIntake Total 650 ml BalanceBalance 650 ml Results Result Diagram: 01/25/19 0543 01/25/19 0543 Results 24hrs Laboratory Tests Test 01/24/19 13:00 01/24/19 13:15 01/24/19 14:01 01/24/19 14:59 Urine Color STRAW Urine Clarity CLEAR Urine pH 5.0 Urine Specific 1.020 [place] Urine Ketones 2+ H Urine Nitrite NEGATIVE Urine Bilirubin NEGATIVE Urine NEGATIVE Urobilinogen Urine Leukocyte NEGATIVE Esterase Urine 1 Microscopic RBC Urine 0 Microscopic WBC Urine Mucus FEW A Urine 1+ H Hemoglobin Urine Glucose 3+ H Urine Total 2+ H Protein Blood Gas Blood venous Specimen Source Arterial Blood 01/24/2019 1:44: Date Drawn 19 PM Arterial Blood VENOUS LINE Gas Puncture Site Schuyler Test N/A Venous Blood pH 7.074 *L Venous Blood 22.7 L pCO2 (Temp Corrected ) Venous Blood 47.4 H pO2 (Temp Corrected ) Venous Blood 6.5 L HCO3 Venous Blood 82.1 H Oxygen Saturation Venous Blood -22.0 L Base Excess Venous Blood 14.5 Total Hemoglobin Venous Blood 81.2 Oxyhemoglobin Venous Blood 0.3 Methemoglobin Carboxyhemoglob 0.8 in Blood Gas 37.0 Temperature Blood Gas ROOM AIR Modality FiO2 21.[address] LARSEN Critical Value Read Back Blood Gas TM Notified Whom Blood Gas 01/24/2019 1:57: Notified Time 46 PM Bedside Glucose 308 H 273 H Test 01/24/19 15:54 01/24/19 17:15 01/24/19 17:34 01/24/19 18:04 Bedside Glucose 252 H 243 H 240 H Blood Gas Blood venous Specimen Source Arterial Blood 01/24/2019 6:27: Date Drawn 49 PM Arterial Blood VENOUS LINE Gas Puncture Site Schuyler Test N/A Venous Blood pH 7.216 L Venous Blood 24.7 L pCO2 (Temp Corrected ) Venous Blood 43.6 H pO2 (Temp Corrected ) Venous Blood 9.8 L HCO3 Venous Blood 82.9 H Oxygen Saturation Venous Blood -16.3 L Base Excess Venous Blood 12.2 Total Hemoglobin Venous Blood 82.4 Oxyhemoglobin Venous Blood 0.3 Methemoglobin Carboxyhemoglob 0.3 in Blood Gas 37.0 Temperature Blood Gas ROOM AIR Modality FiO2 21.0 Blood Gas M.D. Notified Whom Blood Gas 01/24/2019 6:36: Notified Time 12 PM Test 01/24/19 19:01 01/24/19 19:11 01/24/19 20:00 01/24/19 21:04 Bedside Glucose 255 H 256 H 294 H Sodium Level 137 Potassium Level 3.8 Chloride Level 112 H Carbon Dioxide 14 L Level Anion Gap 11 # Blood Urea 6 L Nitrogen Creatinine 0.35 L Est Glomerular > 60 Filtrat Rate mL/min Glucose Level 274 H Lactic Acid 0.7 Level Calcium Level 8.2 L Phosphorus 0.9 #L Level Magnesium Level 1.8 Test 01/24/19 21:15 01/24/19 22:06 01/24/19 23:06 01/24/19 23:37 Blood Gas Blood venous Specimen Source Arterial Blood 01/24/2019 9:10: Date Drawn 25 PM Arterial Blood VENOUS LINE Gas Puncture Site Schuyler Test N/A Venous Blood pH 7.264 L Venous Blood 30.3 L pCO2 (Temp Corrected ) Venous Blood 37.5 H pO2 (Temp Corrected ) Venous Blood 13.4 L HCO3 Venous Blood 78.9 H Oxygen Saturation Venous Blood -12.2 L Base Excess Venous Blood 12.9 Total Hemoglobin Venous Blood 78.2 Oxyhemoglobin Venous Blood 0.3 Methemoglobin Carboxyhemoglob 0.6 in Blood Gas 37.0 Temperature Blood Gas 16 Actual Respiration Rat e Blood Gas ROOM AIR Modality FiO2 21.0 Blood Gas Notified Whom Blood Gas 01/24/2019 9:15: Notified Time 13 PM Bedside Glucose 232 H 248 H Sodium Level 136 Potassium Level 3.6 Chloride Level 113 H Carbon Dioxide 16 L Level Anion Gap 7 Blood Urea 5 L Nitrogen Creatinine 0.35 L Est Glomerular > 60 Filtrat Rate mL/min Glucose Level 269 H Calcium Level 8.0 L Phosphorus 0.7 L Level Magnesium Level 1.8 Test 01/25/19 00:04 01/25/19 01:06 01/25/19 05:43 01/25/19 07:40 Bedside Glucose 259 H 232 H 277 H White Blood 17.9 #H Count Red Blood Count 3.43 #L Hemoglobin 9.8 #L Hematocrit 30.1 #L Mean 87.8 Corpuscular Volume Mean 28.6 L Corpuscular Hemoglobin Mean 32.6 Corpuscular Hemoglobin Conc ent Red Cell 11.9 Distribution Width Platelet Count 308 # Mean Platelet 10.0 Volume Immature 0.600 H Granulocytes % Neutrophils % 81.7 H Lymphocytes % 8.0 L Monocytes % 9.4 Eosinophils % 0.1 Basophils % 0.2 Nucleated Red 0.0 Blood Cells % Immature 0.100 H Granulocytes # Neutrophils # 14.6 H Lymphocytes # 1.4 Monocytes # 1.7 H Eosinophils # 0.0 Basophils # 0.0 Nucleated Red 0.0 Blood Cells # Sodium Level 137 Potassium Level 3.7 Chloride Level 111 H Carbon Dioxide 14 L Level Anion Gap 12 Blood Urea 6 L Nitrogen Creatinine 0.41 L Est Glomerular > 60 Filtrat Rate mL/min Glucose Level 297 H Calcium Level 8.0 L Phosphorus 1.3 L Level Magnesium Level 1.9 Total Bilirubin 0.5 Direct 0.00 Bilirubin Indirect 0.5 Bilirubin Acetone Level POSITIVE-MODER (Chemistry) ATE Aspartate Amino 17 Transf (AST/SGO T) Alanine 12 L Aminotransferas e (ALT/SGPT) Alkaline 84 Phosphatase Total Protein 6.5 # Albumin 3.2 #L Globulin 3.30 H Albumin/Globuli 0.96 n Ratio Test 01/25/19 10:34 01/25/19 11:15 Blood Gas Blood venous Specimen Source Arterial Blood 01/25/2019 11:20 Date Drawn :43 AM Arterial Blood VENOUS LINE Gas Puncture Site Schuyler Test N/A Venous Blood pH 7.301 L Venous Blood 32.7 L pCO2 (Temp Corrected ) Venous Blood 64.1 H pO2 (Temp Corrected ) Venous Blood 15.8 L HCO3 Venous Blood 93.9 H Oxygen Saturation Venous Blood -9.6 L Base Excess Venous Blood 12.2 Total Hemoglobin Venous Blood 93.2 Oxyhemoglobin Venous Blood 0.1 Methemoglobin Carboxyhemoglob 0.6 in Blood Gas 37.0 Temperature Blood Gas ROOM AIR Modality FiO2 21.0 Blood Gas L MARKY DUONG Critical Value Read Back Blood Gas [facility] [place] Notified Whom Blood Gas 01/25/2019 11:28 Notified Time :33 AM Bedside Glucose 288 H Medications Medication Current Medications Dextrose (D50w Syringe) 50 ml Q15M PRN IV For BS 50 or less; Start 01/24/19 at 11:00 Dextrose (D50w Syringe) 25 ml Q15M PRN IV BS between 50-70; Start 01/24/19 at 11:00 IV Flush (NS 3 ml) 3 ml PER PROTOCOL IV ; Start 01/24/19 at 11:00 Ondansetron HCl (Zofran Inj) 4 mg Q6H PRN IV NAUSEA/VOMITING Last administered on 01/24/19at 14:55; Admin Dose 4 MG; Start 01/24/19 at 11:00 Acetaminophen (Tylenol Tab) 650 mg Q6H PRN PO .PAIN 1-3 OR TEMP; Start 01/24/19 at 11:00 Acetaminophen/ Hydrocodone Bitart ([place] (5/325)) 1 tab Q6H PRN PO .PAIN 4-6 Last administered on 01/25/19at 09:05; Admin Dose 1 TAB; Start 01/24/19 at 11:00 Morphine Sulfate (morphine) 2 mg Q4H PRN IV .PAIN 7-10 Last administered on 01/24/19at 21:26; Admin Dose 2 MG; Start 01/24/19 at 11:00 Famotidine (Pepcid Iv) 20 mg Q12 IV Last administered on 01/25/19 09:05; Admin Dose 20 MG; Start 01/24/19 at 21:00 Vancomycin HCl (Vanco Iv Per Pharmacy) VANCOMYCIN PER PHARMACY PER PROTOCOL XX ; Start 01/24/19 at 11:30 Piperacillin Sod/ Tazobactam Sod 100 ml @ 200 mls/hr Q6 IVPB Last administered on 01/25/19at 05:40; Admin Dose 200 MLS/HR; Start 01/24/19 at 12:00 Vancomycin/Sodium Chloride 250 ml @ 83.333 mls/ hr Q8H IVPB Last administered on 01/25/19 09:05; Admin Dose 83.333 MLS/HR; Start 01/25/19 at 00:00 Diagnostic Test (Pha) (Accu-Chek) 1 ea 02 XX ; Start 01/26/19 at 02:00 Insulin Aspart (Novolog Insulin Pen) NOVOLOG *MODERATE* ALGORITHM WITH MEALS BEDTIME SC Last administered on 01/25/19at 11:33; Admin Dose 8 UNIT; Start 01/25/19 at 07:55 Sodium Chloride 1,000 ml @ 125 mls/hr Q8H IV Last administered on 01/25/19at 0 4:30; Admin Dose 125 MLS/HR; Start 01/25/19 at 03:00 Miscellaneous Information 1 ea NOTE XX ; Start 01/25/19 at 03:00 Glucose (Glutose) 15 gm Q15M PRN PO DECREASED GLUCOSE; Start 01/25/19 at 03:00 Glucose (Glutose) 22.5 gm Q15M PRN PO DECREASED GLUCOSE; Start 01/25/19 at 03:00 Dextrose (D50w Syringe) 25 ml Q15M PRN IV DECREASED GLUCOSE; Start 01/25/19 at 03:00 Dextrose (D50w Syringe) 50 ml Q15M PRN IV DECREASED GLUCOSE; Start 01/25/19 at 03:00 Glucagon (Glucagen) 1 mg Q15M PRN IM DECREASED GLUCOSE; Start 01/25/19 at 03:00 Glucose (Glutose) 15 gm Q15M PRN BUCCAL DECREASED GLUCOSE; Start 01/25/19 at 03:00 Miscellaneous Information (*Rx Drug Level Order Reminder*) VANCO TROUGH @ 1,500 ON... 1500 ONCE XX ; Start 01/25/19 at 15:00; Stop 01/25/19 at 15:01 Insulin Aspart (Novolog Insulin Pen) 12 unit WITH MEALS SC Last administered on 01/25/19at 11:33; Admin Dose 12 UNIT; Start 01/25/19 at 11:50 Insulin Glargine (Lantus) 50 units DAILY@2000 SC ; Start 01/25/19 at 20:00 Sodium Phosphate (Neutra-Phos) 250 mg ONCE ONCE PO ; Start 01/25/19 at 12:00; Stop 01/25/19 at 12:01 BLAIR DÍAZ NP Jan 25, 2019 11:48
[2019-01-25] MEDS ORDERED: NEUTRA-PHOS 250 MG PACKET PO ONE (12:00)
[2019-01-25] MEDS: morphine 2 MG INJ IV PRN (14:15)
[2019-01-25 15:17] VITALS: BP 126/78; PULSE 126; RESP 20
[2019-01-25] MEDS ORDERED: INSULIN GLARGINE [LANTus] (100 UNITS/ML) SYG SC SCH (20:00)
[2019-01-25 20:11] VITALS: BP 115/67; PULSE 117; RESP 19
[2019-01-25] MEDS: FAMOTIDINE 20 MG TAB PO SCH (20:16)
[2019-01-25] MEDS: VANCOMYCIN 1.5 GM/NS 250 ML 250 ML IVPB SCH (23:25)
[2019-01-26 00:13] VITALS: BP 104/57; PULSE 82; RESP 18
[2019-01-26] MEDS: ACCU-CHEK XX SCH (02:12)
[2019-01-26] MEDS: SOD CHLORIDE 0.9% 1,000 ML IV SCH ×2 (03:00→07:46)
[2019-01-26 04:06] VITALS: BP 135/85; PULSE 109; RESP 18
[2019-01-26] MEDS: PIPER-TAZO 3.375 GM IV (PMX) 100 ML IVPB SCH ×4 (04:13→23:57)
[2019-01-26] MEDS: morphine 2 MG INJ IV PRN (04:13)
[2019-01-26 07:35] VITALS: BP 110/68; PULSE 96; RESP 18
[2019-01-26] MEDS: VANCOMYCIN 1.5 GM/NS 250 ML 250 ML IVPB SCH ×2 (07:49→16:18)
[2019-01-26] MEDS: INSULIN ASPART [NOVOLOG] 3 ML PEN SC SCH ×7 (08:09→20:56)
[2019-01-26] MEDS: FAMOTIDINE 20 MG TAB PO SCH ×2 (08:40→20:42)
--- NOTE | 2019-01-26 10:09 | PN ---
Date/Time of Note Date/Time of Note DATE: 01/26/19 TIME: 10:07 Objective Vitals Vital Signs Date Temp Pulse Resp B/P (MAP) Pulse Ox O2 O2 Flow FiO2 Time Delivery Rate 01/26/19 98.6 96 18 110/68 98 07:35 (82) 01/26/19 Room Air 04:06 Intake and Output 01/25/19 01/25/19 01/26/19 1515:00 23:00 07:00 IntakeIntake Total 250 ml 3400 ml 3270 ml OutputOutput Total 3 ml BalanceBalance 250 ml 3397 ml 3270 ml Results Result Diagram: 01/25/19 0543 01/25/19 1117 Medications Medications Current Medications Dextrose (D50w Syringe) 50 ml Q15M PRN IV For BS 50 or less; Start 01/24/19 at 11:00 Dextrose (D50w Syringe) 25 ml Q15M PRN IV BS between 50-70; Start 01/24/19 at 11:00 IV Flush (NS 3 ml) 3 ml PER PROTOCOL IV ; Start 01/24/19 at 11:00 Ondansetron HCl (Zofran Inj) 4 mg Q6H PRN IV NAUSEA/VOMITING Last administered on 01/24/19at 14:55; Admin Dose 4 MG; Start 01/24/19 at 11:00 Acetaminophen (Tylenol Tab) 650 mg Q6H PRN PO .PAIN 1-3 OR TEMP; Start 01/24/19 at 11:00 Acetaminophen/ Hydrocodone Bitart ([place] (5/325)) 1 tab Q6H PRN PO .PAIN 4-6 Last administered on 01/25/19at 20:16; Admin Dose 1 TAB; Start 01/24/19 at 11:00 Morphine Sulfate (morphine) 2 mg Q4H PRN IV .PAIN 7-10 Last administered on 01/26/19at 04:13; Admin Dose 2 MG; Start 01/24/19 at 11:00 Vancomycin HCl (Vanco Iv Per Pharmacy) VANCOMYCIN PER PHARMACY PER PROTOCOL XX ; Start 01/24/19 at 11:30 Piperacillin Sod/ Tazobactam Sod 100 ml @ 200 mls/hr Q6 IVPB Last administered on 01/26/19at 04:13; Admin Dose 200 MLS/HR; Start 01/24/19 at 12:00 Diagnostic Test (Pha) (Accu-Chek) 1 ea 02 XX Last administered on 01/26/19at 02:12; Admin Dose 1 EA; Start 01/26/19 at 02:00 Insulin Aspart (Novolog Insulin Pen) NOVOLOG *MODERATE* ALGORITHM WITH MEALS BEDTIME SC Last administered on 01/26/19at 08:09; Admin Dose 6 UNIT; Start 01/25/19 at 07:55 Sodium Chloride 1,000 ml @ 100 mls/hr Q10H IV Last administered on 01/26/19at 07:46; Admin Dose 125 MLS/HR; Start 01/25/19 at 03:00 Miscellaneous Information 1 ea NOTE XX ; Start 01/25/19 at 03:00 Glucose (Glutose) 15 gm Q15M PRN PO DECREASED GLUCOSE; Start 01/25/19 at 03:00 Glucose (Glutose) 22.5 gm Q15M PRN PO DECREASED GLUCOSE; Start 01/25/19 at 03:00 Dextrose (D50w Syringe) 25 ml Q15M PRN IV DECREASED GLUCOSE; Start 01/25/19 at 03:00 Dextrose (D50w Syringe) 50 ml Q15M PRN IV DECREASED GLUCOSE; Start 01/25/19 at 03:00 Glucagon (Glucagen) 1 mg Q15M PRN IM DECREASED GLUCOSE; Start 01/25/19 at 03:00 Glucose (Glutose) 15 gm Q15M PRN BUCCAL DECREASED GLUCOSE; Start 01/25/19 at 03:00 Famotidine (Pepcid) 20 mg Q12 PO Last administered on 01/26/19at 08:40; Admin Dose 20 MG; Start 01/25/19 at 21:00 Vancomycin/Sodium Chloride 250 ml @ 83.333 mls/ hr Q8H IVPB Last administered on 01/26/19at 07:49; Admin Dose 83.333 MLS/HR; Start 01/26/19 at 00:00 Miscellaneous Information (*Rx Drug Level Order Reminder*) VANCO TROUGH @ 2,300 ON... 2300 ONCE XX ; Start 01/26/19 at 23:00; Stop 01/26/19 at 23:01 Potassium Phosphate 40 meq/ Sodium Chloride 259.0909 ml @ 64.773 m... ONCE ON CE IVPB ; Start 01/26/19 at 11:00; Stop 01/26/19 at 14:59 Insulin Aspart (Novolog Insulin Pen) 15 unit WITH MEALS SC ; Start 01/26/19 at 11:50 Insulin Glargine (Lantus) 55 units DAILY@2000 SC ; Start 01/26/19 at 20:00 VTE Prophylaxis Risk score (from Ns)>0 risk: 1 SCD applied (from Ns): Yes Lines/Catheters IV Catheter Type: Lau in Place: No Assessment/Plan Hospital Course Subjective Patient continues to improve, patient states that her neck infection has gotten significantly better as well. Objective Physical exam General: Patient is laying in bed and answers questions appropriately Mentation: Patient is alert and oriented 4, Head: Normocephalic atraumatic Eyes: EOMI, pupils reactive to light Neck: Supple, nontender, midline Respiratory: Clear to auscultation bilaterally Cardiovascular: regular rate, no obvious murmurs Gastrointestinal: non-tender to palpation, bowel sounds heard. Neurological: Moves all extremities spontaneously Skin: Posterior neck erythema and swelling Assessment and plan Diabetic ketoacidosis -Resolving -Patient on long-acting and mealtime insulin, adjust as needed, will likely have a higher requirement due to this acute infection Posterior neck cellulitis -ENT evaluated patient, no procedure necessary -CT not showing any abscess, just significant cellulitis, ultrasound negative for abscess -Broad-spectrum antibiotics -Infectious disease consulted, plan is to change to oral antibiotic once infection is 50% better Generalized weakness, resolved -Secondary to above DKA Disposition -Pending a.m. labs -Patient having good oral intake, DC fluids as tolerated -Continue to adjust insulins. IRVIN LAZARO Jan 26, 2019 10:08
[2019-01-26] MEDS ORDERED: POTASSIUM PHOSPHATE 40 MEQ in SOD CHLORIDE 0.9% 250 ML IVPB ONE (11:00)
[2019-01-26] MEDS ORDERED: POTASSIUM CHLORIDE (SR) 20 MEQ TAB PO STA (12:09)
[2019-01-26 12:27] VITALS: BP 115/67; PULSE 80; RESP 18
--- NOTE | 2019-01-26 13:09 | CONS ---
Assessment/Plan Assessment/Plan Hospital Course (Demo Recall) ID PROGRESS NOTE CURRENT ABX: DAY # =>Vanco IV + Zosyn 01/26/19 1049 01/26/19 1049 24H INTERVAL SUMMARY * Overall feeling better --posterior neck edema/erythema/pain has improved -- generalized weakness * WBC downtrending, no fevers, significant posterior neck erythema DIAGNOSTIC IMAGING * 01/25/19 NECK US: No focal mass or fluid collection visualized. * 01/24/19 CT NECK: Focal soft tissue swelling/stranding at the posterior neck, without discrete fluid collection to suggest abscess seen on this noncontrast evaluation at this time. If there is persistent clinical concern, consider fo llow-up with ultrasound, or contrast enhanced CT. * 01/24/19 CXR: 1. No acute pulmonary abnormality. MICRO * 01/24/19 BCx (-) PHYSICAL EXAMINATION: GENERAL: VSS, NAD HEENT: AT, NC, significant posterior neck erythema == see photos NECK: Supple, CHEST: Rise symmetrical HEART: Pulse RRR ABDOMEN: Benign EXTREMITIES: Warm, dry SKIN: No rash, no diaphoresis ID ASSESSMENT 28 yo F admit with: 1. SIRS w/low grade TMax 99.0+, tachycardia, leukocytosis + generalized weakness => RESOLVING * 01/24/19 BCx (-) 2. Posterior Neck Cellulitis = Acute 3. Diabetic ketoacidosis on admission 4. Obesity BMI ~34 ABX ALLERGIES: KNDA INVASIVES: R-IJ TLC CURRENT ABX: DAY # =>Vanco IV + Zosyn ID RECOMMENDATIONS/PLAN: 1. Continue current ABX -- await clinical improvement 2. Once acute cellulitis resolves ~50% can consider PO switch to Clindamycin vs Augmentin 3. Checking MRSA Nares -- if (+) she will need Clindamycin vs Bactrim on discharge . Consultation Date/Type/Reason Admit Date/Time Jan 24, 2019 at 10:14 Initial Consult Date Date/Time of Note DATE: 01/26/19 TIME: 13:06 Exam/Review of Systems Exam Vitals Vital Signs Date Temp Pulse Resp B/P (MAP) Pulse Ox O2 O2 Flow FiO2 Time Delivery Rate 01/26/19 98.0 80 18 115/67 98 12:27 (83) 01/26/19 Room Air 04:06 Intake and Output 01/25/19 01/25/19 01/26/19 1515:00 23:00 07:00 IntakeIntake Total 250 ml 3400 ml 3270 ml OutputOutput Total 3 ml BalanceBalance 250 ml 3397 ml 3270 ml Results Result Diagram: 01/26/19 1049 01/26/19 1049 Results 24hrs Laboratory Tests Test 01/25/19 14:52 01/25/19 17:22 01/25/19 20:14 01/26/19 02:01 Vancomycin Level 9.8 L Trough Bedside Glucose 257 H 287 H 226 H Test 01/26/19 05:00 01/26/19 07:45 01/26/19 10:49 01/26/19 11:44 Urine Ketones 1+ H Bedside Glucose 241 H 174 White Blood Count 11.6 #H Red Blood Count 3.55 L Hemoglobin 10.0 L Hematocrit 30.2 L Mean Corpuscular 85.1 Volume Mean Corpuscular 28.2 L Hemoglobin Mean Corpuscular 33.1 Hemoglobin Concent Red Cell 11.9 Distribution Width Platelet Count 297 Mean Platelet Volume 10.2 Immature 0.500 H Granulocytes % Neutrophils % 70.7 Lymphocytes % 16.3 Monocytes % 11.6 H Eosinophils % 0.6 Basophils % 0.3 Nucleated Red Blood 0.0 Cells % Immature 0.060 H Granulocytes # Neutrophils # 8.2 H Lymphocytes # 1.9 Monocytes # 1.3 H Eosinophils # 0.1 Basophils # 0.0 Nucleated Red Blood 0.0 Cells # Sodium Level 140 Potassium Level 2.8 *L Chloride Level 109 Carbon Dioxide Level 24 Anion Gap 7 Blood Urea Nitrogen 5 L Creatinine 0.31 L Est Glomerular > 60 Filtrat Rate mL/min Glucose Level 190 # Calcium Level 8.1 L Total Bilirubin 0.3 Direct Bilirubin 0.00 Indirect Bilirubin 0.3 Aspartate Amino 18 Transf (AST/SGOT) Alanine 23 Aminotransferase (AL T/SGPT) Alkaline Phosphatase 72 Total Protein 6.4 Albumin 2.9 L Globulin 3.50 H Albumin/Globulin 0.82 Ratio Medications Medication Current Medications Dextrose (D50w Syringe) 50 ml Q15M PRN IV For BS 50 or less; Start 01/24/19 at 11:00 Dextrose (D50w Syringe) 25 ml Q15M PRN IV BS between 50-70; Start 01/24/19 at 11:00 IV Flush (NS 3 ml) 3 ml PER PROTOCOL IV ; Start 01/24/19 at 11:00 Ondansetron HCl (Zofran Inj) 4 mg Q6H PRN IV NAUSEA/VOMITING Last administered on 01/24/19at 14:55; Admin Dose 4 MG; Start 01/24/19 at 11:00 Acetaminophen (Tylenol Tab) 650 mg Q6H PRN PO .PAIN 1-3 OR TEMP; Start 01/24/19 at 11:00 Acetaminophen/ Hydrocodone Bitart ([place] (5/325)) 1 tab Q6H PRN PO .PAIN 4-[address] administered on 01/25/19at 20:16; Admin Dose 1 TAB; Start 01/24/19 at 11:00 Morphine Sulfate (morphine) 2 mg Q4H PRN IV .PAIN 7-10 Last administered on 01/26/19at 04:13; Admin Dose 2 MG; Start 01/24/19 at 11:00 Vancomycin HCl (Vanco Iv Per Pharmacy) VANCOMYCIN PER PHARMACY PER PROTOCOL XX ; Start 01/24/19 at 11:30 Piperacillin Sod/ Tazobactam Sod 100 ml @ 200 mls/hr Q6 IVPB Last administered on 01/26/19at 12:01; Admin Dose 200 MLS/HR; Start 01/24/19 at 12:00 Diagnostic Test (Pha) (Accu-Chek) 1 ea 02 XX Last administered on 01/26/19at 02:12; Admin Dose 1 EA; Start 01/26/19 at 02:00 Insulin Aspart (Novolog Insulin Pen) NOVOLOG *MODERATE* ALGORITHM WITH MEALS BEDTIME SC Last administered on 01/26/19at 11:53; Admin Dose 2 UNIT; Start 01/25/19 at 07:55 Miscellaneous Information 1 ea NOTE XX ; Start 01/25/19 at 03:00 Glucose (Glutose) 15 gm Q15M PRN PO DECREASED GLUCOSE; Start 01/25/19 at 03:00 Glucose (Glutose) 22.5 gm Q15M PRN PO DECREASED GLUCOSE; Start 01/25/19 at 03:00 Dextrose (D50w Syringe) 25 ml Q15M PRN IV DECREASED GLUCOSE; Start 01/25/19 at 03:00 Dextrose (D50w Syringe) 50 ml Q15M PRN IV DECREASED GLUCOSE; Start 01/25/19 at 03:00 Glucagon (Glucagen) 1 mg Q15M PRN IM DECREASED GLUCOSE; Start 01/25/19 at 03:00 Glucose (Glutose) 15 gm Q15M PRN BUCCAL DECREASED GLUCOSE; Start 01/25/19 at 03:00 Famotidine (Pepcid) 20 mg Q12 PO Last administered on 01/26/19at 08:40; Admin Dose 20 MG; Start 01/25/19 at 21:00 Vancomycin/Sodium Chloride 250 ml @ 83.333 mls/ hr Q8H IVPB Last administered on 01/26/19at 07:49; Admin Dose 83.333 MLS/HR; Start 01/26/19 at 00:00 Miscellaneous Information (*Rx Drug Level Order Reminder*) VANCO TROUGH @ 2,300 ON... 2300 ONCE XX ; Start 01/26/19 at 23:00; Stop 01/26/19 at 23:01 Potassium Phosphate 40 meq/ Sodium Chloride 259.0909 ml @ 64.773 m... ONCE ONCE IVPB Last administered on 01/26/19at 11:56; Admin Dose 64.773 MLS/HR; Start 01/26/19 at 11:00; Stop 01/26/19 at 14:59 Insulin Aspart (Novolog Insulin Pen) 15 unit WITH MEALS SC Last administered on 01/26/19at 11:53; Admin Dose 15 UNIT; Start 01/26/19 at 11:50 Insulin Glargine (Lantus) 55 units DAILY@2000 SC ; Start 01/26/19 at 20:00 BLAIR DÍAZ NP Jan 26, 2019 13:09
[2019-01-26 16:03] VITALS: BP 101/58; PULSE 90; RESP 18
[2019-01-26 19:12] VITALS: BP 125/75; PULSE 99; RESP 19
[2019-01-26] MEDS: HYDROCODONE/APAP (5/325) TAB PO PRN (20:42)
[2019-01-26] MEDS: INSULIN GLARGINE [LANTus] (100 UNITS/ML) SYG SC SCH (20:46)
[2019-01-27] VITALS (7 sets, daily range): BP systolic 109–129; BP diastolic 67–80; PULSE 78–106; RESP 18–20
[2019-01-27] MEDS: VANCOMYCIN 1.5 GM/NS 250 ML 250 ML IVPB SCH ×4 (01:01→23:27)
[2019-01-27] MEDS: ACCU-CHEK XX SCH (02:00)
[2019-01-27] MEDS: PIPER-TAZO 3.375 GM IV (PMX) 100 ML IVPB SCH ×2 (05:40→12:00)
[2019-01-27] MEDS: FAMOTIDINE 20 MG TAB PO SCH ×2 (08:06→20:40)
[2019-01-27] MEDS: INSULIN ASPART [NOVOLOG] 3 ML PEN SC SCH ×7 (08:43→20:53)
[2019-01-27] MEDS ORDERED: POTASSIUM PHOSPHATE 40 MEQ in SOD CHLORIDE 0.9% 250 ML IVPB ONE (10:30)
[2019-01-27] MEDS ORDERED: POTASSIUM CHLORIDE (SR) 20 MEQ TAB PO ONE (12:00)
[2019-01-27] MEDS: MUPIROCIN 2% 22 GM OINT TOP SCH ×2 (13:45→20:40)
[2019-01-27] MEDS ORDERED: CEFTRIAXONE 1 GM/50 ML (PMX) 50 ML IVPB SCH (16:00)
[2019-01-27] MEDS: RIFAMPIN 300 MG CAP PO SCH (17:30)
--- NOTE | 2019-01-27 17:38 | PN ---
Date/Time of Note Date/Time of Note DATE: 01/27/19 TIME: 17:33 Assessment/Plan VTE Prophylaxis Risk score (from Nsg)>0 risk: 1 SCD applied (from Ns): No SCD contraindicated: low risk/ambulating Pharmacological prophylaxis: NA/contraindicated Pharm contraindication: low risk/ambulating Lines/Catheters IV Catheter Type (from Nrsg): Central Line Central line still needed: Yes Urinary Cath still in place: No Assessment/Plan Assessment/Plan 1. Posterior neck cellulitis - ENT consultation appreciated. no intervention at this time - ID on board and appreciate recommendations. when erythema and discharge improves, will d/c on PO antibiotics - CT not showing any abscess, just significant cellulitis, ultrasound negative for abscess 2. Diabetic ketoacidosis- resolved - due to infection at base of neck 3. DM - A1c noted - continue adjust Insulin as needed 4. Generalized weakness, resolved - Secondary to above DKA 5. Disposition - Monitor for improvement in discharge and erythema from neck cellulitis. c ontinue antibiotics per ID recommendations Result Diagram: 01/27/19 0543 01/27/19 0543 Results 24hrs Laboratory Tests Test 01/26/19 20:41 01/26/19 22:53 01/27/19 02:47 01/27/19 05:43 Bedside Glucose 223 H 198 Vancomycin Level 10.1 Trough White Blood Count 9.5 Red Blood Count 3.74 L Hemoglobin 10.5 L Hematocrit 31.5 L Mean Corpuscular 84.2 Volume Mean Corpuscular 28.1 L Hemoglobin Mean Corpuscular 33.3 Hemoglobin Concent Red Cell 11.9 Distribution Width Platelet Count 317 Mean Platelet Volume 9.9 Immature 0.700 H Granulocytes % Neutrophils % 61.3 Lymphocytes % 26.0 Monocytes % 10.0 Eosinophils % 1.6 Basophils % 0.4 Nucleated Red Blood 0.0 Cells % Immature 0.070 H Granulocytes # Neutrophils # 5.8 Lymphocytes # 2.5 Monocytes # 1.0 H Eosinophils # 0.2 Basophils # 0.0 Nucleated Red Blood 0.0 Cells # Sodium Level 139 Potassium Level 3.0 L Chloride Level 107 Carbon Dioxide Level 25 Anion Gap 7 Blood Urea Nitrogen 5 L Creatinine 0.30 L Est Glomerular > 60 Filtrat Rate mL/min Glucose Level 194 Calcium Level 8.3 L Phosphorus Level 2.0 #L Magnesium Level 2.1 Test 01/27/19 08:03 01/27/19 11:45 01/27/19 17:28 Bedside Glucose 189 217 198 Subjective 24 Hr Interval Summary Free Text/Dictation Patient states her pain has been improving and has not needed to ask for any medications. swelling has improved as well. Exam/Review of Systems Exam Vitals Vital Signs Date Temp Pulse Resp B/P (MAP) Pulse Ox O2 O2 Flow FiO2 Time Delivery Rate 01/27/19 98.0 87 18 118/76 98 15:41 (90) 01/27/19 Room Air 04:00 Intake and Output 01/26/19 01/26/19 01/27/19 1414:59 22:59 06:59 IntakeIntake Total 600 ml 2090 ml 2390 ml OutputOutput Total 1 ml BalanceBalance 599 ml 2090 ml 2390 ml Exam General: Patient is laying in bed and answers questions appropriately Eyes: EOMI, pupils reactive to light Neck: Supple, nontender, midline. base of neck with raised area with purulent discharge Respiratory: Clear to auscultation bilaterally. no wheezing or rhonchi Cardiovascular: regular rate and rhythm, no obvious murmurs Gastrointestinal: soft, non-tender to palpation, bowel sounds heard. Neurological: Moves all extremities spontaneously Skin: Posterior neck with mild erythema, swelling and purulent discharge Results Results 24hrs Laboratory Tests Test 01/26/19 20:41 01/26/19 22:53 01/27/19 02:47 01/27/19 05:43 Bedside Glucose 223 H 198 Vancomycin Level 10.1 Trough White Blood Count 9.5 Red Blood Count 3.74 L Hemoglobin 10.5 L Hematocrit 31.5 L Mean Corpuscular 84.2 Volume Mean Corpuscular 28.1 L Hemoglobin Mean Corpuscular 33.3 Hemoglobin Concent Red Cell 11.9 Distribution Width Platelet Count 317 Mean Platelet Volume 9.9 Immature 0.700 H Granulocytes % Neutrophils % 61.3 Lymphocytes % 26.0 Monocytes % 10.0 Eosinophils % 1.6 Basophils % 0.4 Nucleated Red Blood 0.0 Cells % Immature 0.070 H Granulocytes # Neutrophils # 5.8 Lymphocytes # 2.5 Monocytes # 1.0 H Eosinophils # 0.2 Basophils # 0.0 Nucleated Red Blood 0.0 Cells # Sodium Level 139 Potassium Level 3.0 L Chloride Level 107 Carbon Dioxide Level 25 Anion Gap 7 Blood Urea Nitrogen 5 L Creatinine 0.30 L Est Glomerular > 60 Filtrat Rate mL/min Glucose Level 194 Calcium Level 8.3 L Phosphorus Level 2.0 #L Magnesium Level 2.1 Test 01/27/19 08:03 01/27/19 11:45 01/27/19 17:28 Bedside Glucose 189 217 198 Medications Medication Current Medications Dextrose (D50w Syringe) 50 ml Q15M PRN IV For BS 50 or less; Start 01/24/19 at 11:00 Dextrose (D50w Syringe) 25 ml Q15M PRN IV BS between 50-70; Start 01/24/19 at 11:00 IV Flush (NS 3 ml) 3 ml PER PROTOCOL IV ; Start 01/24/19 at 11:00 Ondansetron HCl (Zofran Inj) 4 mg Q6H PRN IV NAUSEA/VOMITING Last administered on 01/24/19at 14:55; Admin Dose 4 MG; Start 01/24/19 at 11:00 Acetaminophen (Tylenol Tab) 650 mg Q6H PRN PO .PAIN 1-3 OR TEMP; Start 01/24/19 at 11:00 Acetaminophen/ Hydrocodone Bitart ([place] (5/325)) 1 tab Q6H PRN PO .PAIN 4-6 Last administered on 01/26/19at 20:42; Admin Dose 1 TAB; Start 01/24/19 at 11:00 Morphine Sulfate (morphine) 2 mg Q4H PRN IV .PAIN 7-10 Last administered on 01/26/19at 04:13; Admin Dose 2 MG; Start 01/24/19 at 11:00 Vancomycin HCl (Vanco Iv Per Pharmacy) VANCOMYCIN PER PHARMACY PER PROTOCOL XX ; Start 01/24/19 at 11:30 Diagnostic Test (Pha) (Accu-Chek) 1 ea 02 XX Last administered on 01/27/19at 02:00; Admin Dose 1 EA; Start 01/26/19 at 02:00 Insulin Aspart (Novolog Insulin Pen) NOVOLOG *MODERATE* ALGORITHM WITH MEALS BEDTIME SC Last administered on 01/27/19at 12:17; Admin Dose 4 UNIT; Start 01/25/19 at 07:55 Miscellaneous Information 1 ea NOTE XX ; Start 01/25/19 at 03:00 Glucose (Glutose) 15 gm Q15M PRN PO DECREASED GLUCOSE; Start 01/25/19 at 03:00 Glucose (Glutose) 22.5 gm Q15M PRN PO DECREASED GLUCOSE; Start 01/25/19 at 03:00 Dextrose (D50w Syringe) 25 ml Q15M PRN IV DECREASED GLUCOSE; Start 01/25/19 at 03:00 Dextrose (D50w Syringe) 50 ml Q15M PRN IV DECREASED GLUCOSE; Start 01/25/19 at 03:00 Glucagon (Glucagen) 1 mg Q15M PRN IM DECREASED GLUCOSE; Start 01/25/19 at 03:00 Glucose (Glutose) 15 gm Q15M PRN BUCCAL DECREASED GLUCOSE; Start 01/25/19 at 03:00 Famotidine (Pepcid) 20 mg Q12 PO Last administered on 01/27/19at 08:06; Admin Dose 20 MG; Start 01/25/19 at 21:00 Vancomycin/Sodium Chloride 250 ml @ 83.333 mls/ hr Q8H IVPB Last administered on 01/27/19at 16:01; Admin Dose 83.333 MLS/HR; Start 01/26/19 at 00:00 Insulin Aspart (Novolog Insulin Pen) 15 unit WITH MEALS SC Last administered on 01/27/19at 12:18; Admin Dose 15 UNIT; Start 01/26/19 at 11:50 Insulin Glargine (Lantus) 55 units DAILY@2000 SC Last administered on 01/26/19at 20:46; Admin Dose 55 UNITS; Start 01/26/19 at 20:00 Mupirocin (Bactroban) 1 applic BID TOP Last administered on 01/27/19at 13:45; Admin Dose 1 APPLIC; Start 01/27/19 at 13:00; Stop 02/03/19 at 12:59 Ceftriaxone Sodium 50 ml @ 100 mls/hr Q24H IVPB Last administered on 01/27/19 16:05; Admin Dose 100 MLS/HR; Start 01/27/19 at 16:00 Rifampin (Rifampin) 600 mg DAILY PO Last administered on 01/27/19at 17:30; Admin Dose 600 MG; Start 01/27/19 at 16:00 MARCOS SANDERS MD Jan 27, 2019 17:38
--- NOTE | 2019-01-27 19:43 | PN ---
DATE: 01/27/2019 SUBJECTIVE: The patient is alert, feels better, looks comfortable, no fevers overnight. WBC 9.5, no shift, no bands. BUN 5, creatinine 0.30. MICROBIOLOGY: Culture of posterior neck drainage growing Staphylococcus aureus preliminary. MRSA swab positive. ANTIMICROBIALS: 1. Vancomycin. 2. Zosyn. INDWELLING: Right IJ triple-lumen catheter. PHYSICAL EXAMINATION: GENERAL: This is well-developed, well-nourished 28-year-old woman who is alert, in no distress. HEENT: Head atraumatic, normocephalic. Sclerae anicteric. NECK: Supple. The patient has significant swelling and erythema on the posterior part of the neck. There is some drainage present. HEART: S1, S2. ABDOMEN: Soft, bowel tones present. LUNGS: Clear. EXTREMITIES: Without cyanosis. ASSESSMENT: 1. Posterior neck cellulitis, possibly developing abscess. 2. Resolving leukocytosis. 3. Status post diabetic ketoacidosis. 4. Morbid obesity. 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 PLAN: Continue present care. Change Zosyn to Rocephin. Add rifampin and topical Bactroban to nares. Keep on IV antibiotics as patient possibly developing posterior neck abscess and await for final cultures. Dictated By: [place] CUELLAR MED AIDE for LARY MARTINO MD NI/NTS Conf#: [id number] DID#: [id number] CC: IRVIN LAZARO MD;*EndCC* MTDD
[2019-01-27] MEDS: HYDROCODONE/APAP (5/325) TAB PO PRN (20:40)
[2019-01-27] MEDS: INSULIN GLARGINE [LANTus] (100 UNITS/ML) SYG SC SCH (21:14)
[2019-01-28] VITALS: BP 115/80; PULSE 70; PULSE 83; RESP 18
[2019-01-28] MEDS: ACCU-CHEK XX SCH (02:10)
[2019-01-28 04:00] VITALS: BP 122/76; PULSE 69; RESP 18
[2019-01-28 07:38] VITALS: BP 107/70; PULSE 70; RESP 18
[2019-01-28] MEDS: MUPIROCIN 2% 22 GM OINT TOP SCH ×2 (08:09→23:33)
[2019-01-28] MEDS: RIFAMPIN 300 MG CAP PO SCH (08:10)
[2019-01-28] MEDS: FAMOTIDINE 20 MG TAB PO SCH ×2 (08:10→20:54)
[2019-01-28] MEDS: VANCOMYCIN 1.5 GM/NS 250 ML 250 ML IVPB SCH ×3 (08:10→23:33)
[2019-01-28] MEDS: INSULIN ASPART [NOVOLOG] 3 ML PEN SC SCH ×7 (08:38→21:00)
[2019-01-28] MEDS ORDERED: LIDOCAINE 1% (MPF) 30 ML INJ ONE (12:28)
[2019-01-28 12:54] VITALS: BP 110/69; PULSE 73; RESP 20
[2019-01-28] MEDS ORDERED: LIDOCAINE 1%/EPI (MDV) 50 ML INJ INJ STA (13:16)
[2019-01-28] MEDS ORDERED: LIDOCAINE 1% (MPF) 30 ML INJ INJ STA (13:23)
--- NOTE | 2019-01-28 13:28 | CONS ---
Assessment/Plan Assessment/Plan Hospital Course (Demo Recall) SUBJECTIVE: The patient is alert, looks comfortable, no fevers overnight. MICROBIOLOGY: Culture of posterior neck drainage growing MRSA. MRSA swab positive. ANTIMICROBIALS: 1. Vancomycin. 2. Rocephin 3. Rifampin. INDWELLING: Right IJ triple-lumen catheter. PHYSICAL EXAMINATION: GENERAL: This is well-developed, well-nourished 28-year-old woman who is alert, in no distress. HEENT: Head atraumatic, normocephalic. Sclerae anicteric. NECK: Supple. The patient has significant swelling and erythema on the posterior part of the neck. There is some drainage present. HEART: S1, S2. ABDOMEN: Soft, bowel tones present. LUNGS: Clear. EXTREMITIES: Without cyanosis. ASSESSMENT: 1. Posterior neck cellulitis, possibly developing abscess. 2. Resolving leukocytosis. 3. Status post diabetic ketoacidosis. 4. Morbid obesity. 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 PLAN: Stable, dc Rocephin, continue abx Consultation Date/Type/Reason Admit Date/Time Jan 24, 2019 at 10:14 Initial Consult Date Type of Consult id Date/Time of Note DATE: 01/28/19 TIME: 13:27 Exam/Review of Systems Exam Vitals Vital Signs Date Temp Pulse Resp B/P (MAP) Pulse Ox O2 O2 Flow FiO2 Time Delivery Rate 01/28/19 98.0 73 20 110/69 98 12:54 (83) 01/27/19 Room Air 04:00 Intake and Output 01/27/19 01/27/19 01/28/19 1515:00 23:00 07:00 IntakeIntake Total 760 ml 850 ml BalanceBalance 760 ml 850 ml Results Result Diagram: 01/27/19 0543 01/27/19 0543 Results 24hrs Laboratory Tests Test 01/27/19 17:28 01/27/19 20:38 01/28/19 02:07 01/28/19 08:08 Bedside Glucose 198 227 H 210 208 Test 01/28/19 12:27 Bedside Glucose 233 H Medications Medication Current Medications Dextrose (D50w Syringe) 50 ml Q15M PRN IV For BS 50 or less; Start 01/24/19 at 11:00 Dextrose (D50w Syringe) 25 ml Q15M PRN IV BS between 50-70; Start 01/24/19 at 11:00 IV Flush (NS 3 ml) 3 ml PER PROTOCOL IV ; Start 01/24/19 at 11:00 Ondansetron HCl (Zofran Inj) 4 mg Q6H PRN IV NAUSEA/VOMITING Last administered on 01/24/19at 14:55; Admin Dose 4 MG; Start 01/24/19 at 11:00 Acetaminophen (Tylenol Tab) 650 mg Q6H PRN PO .PAIN 1-3 OR TEMP; Start 01/24/19 at 11:00 Acetaminophen/ Hydrocodone Bitart ([place] (5/325)) 1 tab Q6H PRN PO .PAIN 4-[address] administered on 01/27/19at 20:40; Admin Dose 1 TAB; Start 01/24/19 at 11:00 Morphine Sulfate (morphine) 2 mg Q4H PRN IV .PAIN 7-10 Last administered on 01/26/19at 04:13; Admin Dose 2 MG; Start 01/24/19 at 11:00 Vancomycin HCl (Vanco Iv Per Pharmacy) VANCOMYCIN PER PHARMACY PER PROTOCOL XX ; Start 01/24/19 at 11:30 Diagnostic Test (Pha) (Accu-Chek) 1 ea 02 XX Last administered on 01/28/19 02:10; Admin Dose 1 EA; Start 01/26/19 at 02:00 Insulin Aspart (Novolog Insulin Pen) NOVOLOG *MODERATE* ALGORITHM WITH MEALS BEDTIME SC Last administered on 01/28/19 12:44; Admin Dose 6 UNIT; Start 01/07 at 07:55 Miscellaneous Information 1 ea NOTE XX ; Start 01/25/19 at 03:00 Glucose (Glutose) 15 gm Q15M PRN PO DECREASED GLUCOSE; Start 01/25/19 at 03:00 Glucose (Glutose) 22.5 gm Q15M PRN PO DECREASED GLUCOSE; Start 01/25/19 at 03:00 Dextrose (D50w Syringe) 25 ml Q15M PRN IV DECREASED GLUCOSE; Start 01/25/19 at 03:00 Dextrose (D50w Syringe) 50 ml Q15M PRN IV DECREASED GLUCOSE; Start 01/25/19 at 03:00 Glucagon (Glucagen) 1 mg Q15M PRN IM DECREASED GLUCOSE; Start 01/25/19 at 03:00 Glucose (Glutose) 15 gm Q15M PRN BUCCAL DECREASED GLUCOSE; Start 01/25/19 at 03:00 Famotidine (Pepcid) 20 mg Q12 PO Last administered on 01/28/19 08:10; Admin Dose 20 MG; Start 01/25/19 at 21:00 Vancomycin/Sodium Chloride 250 ml @ 83.333 mls/ hr Q8H IVPB Last administered on 01/28/19 08:10; Admin Dose 83.333 MLS/HR; Start 01/26/19 at 00:00 Insulin Aspart (Novolog Insulin Pen) 15 unit WITH MEALS SC Last administered on 01/28/19 12:44; Admin Dose 15 UNIT; Start 01/26/19 at 11:50 Insulin Glargine (Lantus) 55 units DAILY@2000 SC Last administered on 01/27/19 21:14; Admin Dose 55 UNITS; Start 01/26/19 at 20:00 Mupirocin (Bactroban) 1 applic BID TOP Last administered on 01/28/19 08:09; Admin Dose 1 APPLIC; Start 01/27/19 at 13:00; Stop 02/03/19 at 12:59 Ceftriaxone Sodium 50 ml @ 100 mls/hr Q24H IVPB Last administered on 01/27/19 16:05; Admin Dose 100 MLS/HR; Start 01/27/19 at 16:00 Rifampin (Rifampin) 600 mg DAILY PO Last administered on 01/28/19 08:10; Admin Dose 600 MG; Start 01/27/19 at 16:00 Lidocaine (Xylocaine 1% (Mpf)) 30 ml ONCE STAT INJ ; Start 01/28/19 at 13:23; Stop 01/28/19 at 13:24; Status UNCHINA MALDONADO NP Jan 28, 2019 13:28
--- NOTE | 2019-01-28 13:36 | OPR ---
Date/Time of Note Date/Time of Note DATE: 01/28/19 TIME: 13:34 Operative Report Procedure Date: Jan 28, 2019 Preoperative Diagnosis Base of the neck abscess Postoperative Diagnosis The same Operation/Procedure Performed Bedside incision and drainage of the neck abscess Surgeon see signature line Osteopathic Physician None Anesthesia Type: other (Local) Estimated Blood Loss: minimal Transfusion none Specimen None Grafts/Implants none Complications none Pt Condition Post Procedure: stable Disposition: other (Bedside) Indications 28-year-old diabetic female developed neck abscess. Procedure Description Patient was placed in the right decubitus position. The upper back and the neck were prepped and draped in usual sterile fashion. Local anesthetic was inject ed. 11 blade was used to open the abscess cavity. Past was evacuated. The wound was packed with a gauze iodoform. Sterile dressing was applied. DIMAS NOLAND MD Jan 28, 2019 13:36
[2019-01-28 15:57] VITALS: BP 117/70; PULSE 71; RESP 20
--- NOTE | 2019-01-28 16:15 | PN ---
Date/Time of Note Date/Time of Note DATE: 01/28/19 TIME: 16:11 Assessment/Plan VTE Prophylaxis Risk score (from Nsg)>0 risk: 3 SCD applied (from Ns): No SCD contraindicated: low risk/ambulating Pharmacological prophylaxis: NA/contraindicated Pharm contraindication: low risk/ambulating Lines/Catheters IV Catheter Type (from Nrsg): Central Line Central line still needed: Yes Urinary Cath still in place: No Assessment/Plan Assessment/Plan 1. Posterior neck cellulitis - Gen Surgery consultation appreciated and pt had I&D performed. Will continue local wound care - MRSA growing on wound cultures and continue on vancomycin and rifampin per ID recommendations - ENT consultation appreciated. no intervention at this time - ID on board and appreciate recommendations. - Wound care consultation appreciated 2. Diabetic ketoacidosis- resolved - due to infection at base of neck 3. DM - A1c noted - continue adjust Insulin as needed - DM education consultation appreciated. Recommending start on Tradjenta and Metformin prior to d/c 4. Generalized weakness, resolved - Secondary to above DKA 5. Disposition - s/p I&D neck abscess. Will continue local wound care and touch base with ID for final antibiotic recommendations Result Diagram: 01/27/19 0543 01/27/19 0543 Results 24hrs Laboratory Tests Test 01/27/19 17:28 01/27/19 20:38 01/28/19 02:07 01/28/19 08:08 Bedside Glucose 198 227 H 210 208 Test 01/28/19 12:27 Bedside Glucose 233 H Subjective 24 Hr Interval Summary Free Text/Dictation Patient still draining from neck and recommended I&D by wound care. No acute overnight events. Exam/Review of Systems Exam Vitals Vital Signs Date Temp Pulse Resp B/P (MAP) Pulse Ox O2 O2 Flow FiO2 Time Delivery Rate 01/28/19 98.0 71 20 117/70 98 15:57 (86) 01/27/19 Room Air 04:00 Intake and Output 01/27/19 01/27/19 01/28/19 1515:00 23:00 07:00 IntakeIntake Total 760 ml 850 ml BalanceBalance 760 ml 850 ml Exam General: Patient is laying in bed and answers questions appropriately Eyes: EOMI, pupils reactive to light Neck: Supple, nontender, midline. dressing in place Respiratory: Clear to auscultation bilaterally. no wheezing or rhonchi Cardiovascular: regular rate and rhythm, no obvious murmurs Gastrointestinal: soft, non-tender to palpation, bowel sounds heard. Neurological: Moves all extremities spontaneously Skin: dressing in place Results Results 24hrs Laboratory Tests Test 01/27/19 17:28 01/27/19 20:38 01/28/19 02:07 01/28/19 08:08 Bedside Glucose 198 227 H 210 208 Test 01/28/19 12:27 Bedside Glucose 233 H Medications Medication Current Medications Dextrose (D50w Syringe) 50 ml Q15M PRN IV For BS 50 or less; Start 01/24/19 at 11:00 Dextrose (D50w Syringe) 25 ml Q15M PRN IV BS between 50-70; Start 01/24/19 at 11:00 IV Flush (NS 3 ml) 3 ml PER PROTOCOL IV ; Start 01/24/19 at 11:00 Ondansetron HCl (Zofran Inj) 4 mg Q6H PRN IV NAUSEA/VOMITING Last administered on 01/24/19at 14:55; Admin Dose 4 MG; Start 01/24/19 at 11:00 Acetaminophen (Tylenol Tab) 650 mg Q6H PRN PO .PAIN 1-3 OR TEMP; Start 01/24/19 at 11:00 Acetaminophen/ Hydrocodone Bitart ([place] (5/325)) 1 tab Q6H PRN PO .PAIN 4-6 L ast administered on 01/27/19at 20:40; Admin Dose 1 TAB; Start 01/24/19 at 11:00 Morphine Sulfate (morphine) 2 mg Q4H PRN IV .PAIN 7-10 Last administered on 01/26/19at 04:13; Admin Dose 2 MG; Start 01/24/19 at 11:00 Vancomycin HCl (Vanco Iv Per Pharmacy) VANCOMYCIN PER PHARMACY PER PROTOCOL XX ; Start 01/24/19 at 11:30 Diagnostic Test (Pha) (Accu-Chek) 1 ea 02 XX Last administered on 01/28/19at 02:10; Admin Dose 1 EA; Start 01/26/19 at 02:00 Insulin Aspart (Novolog Insulin Pen) NOVOLOG *MODERATE* ALGORITHM WITH MEALS BEDTIME SC Last administered on 01/28/19at 12:44; Admin Dose 6 UNIT; Start at 07:55 Miscellaneous Information 1 ea NOTE XX ; Start 01/25/19 at 03:00 Glucose (Glutose) 15 gm Q15M PRN PO DECREASED GLUCOSE; Start 01/25/19 at 03:00 Glucose (Glutose) 22.5 gm Q15M PRN PO DECREASED GLUCOSE; Start 01/25/19 at 03:00 Dextrose (D50w Syringe) 25 ml Q15M PRN IV DECREASED GLUCOSE; Start 01/25/19 at 03:00 Dextrose (D50w Syringe) 50 ml Q15M PRN IV DECREASED GLUCOSE; Start 01/25/19 at 03:00 Glucagon (Glucagen) 1 mg Q15M PRN IM DECREASED GLUCOSE; Start 01/25/19 at 03:00 Glucose (Glutose) 15 gm Q15M PRN BUCCAL DECREASED GLUCOSE; Start 01/25/19 at 03:00 Famotidine (Pepcid) 20 mg Q12 PO Last administered on 01/28/19 08:10; Admin Dose 20 MG; Start 01/25/19 at 21:00 Vancomycin/Sodium Chloride 250 ml @ 83.333 mls/ hr Q8H IVPB Last administered on 01/28/19at 08:10; Admin Dose 83.333 MLS/HR; Start 01/26/19 at 00:00 Insulin Aspart (Novolog Insulin Pen) 15 unit WITH MEALS SC Last administered on 01/28/19at 12:44; Admin Dose 15 UNIT; Start 01/26/19 at 11:50 Insulin Glargine (Lantus) 55 units DAILY@2000 SC Last administered on 01/27/19at 21:14; Admin Dose 55 UNITS; Start 01/26/19 at 20:00 Mupirocin (Bactroban) 1 applic BID TOP Last administered on 01/28/19at 08:09; Admin Dose 1 APPLIC; Start 01/27/19 at 13:00; Stop 02/03/19 at 12:59 Rifampin (Rifampin) 600 mg DAILY PO Last administered on 01/28/19 08:10; Admin Dose 600 MG; Start 01/27/19 at 16:00 Miscellaneous Information (*Rx Drug Level Order Reminder*) VANCOMYCIN TROUGH AT 2300 2300 ONCE XX ; Start 01/29/19 at 23:00; Stop 01/29/19 at 23:01 MARCOS SANDERS MD Jan 28, 2019 16:15
[2019-01-28] MEDS: metFORMIN 500 MG TAB PO SCH (17:36)
[2019-01-28 20:00] VITALS: BP 125/78; PULSE 82; RESP 18
[2019-01-28] MEDS: HYDROCODONE/APAP (5/325) TAB PO PRN (20:54)
[2019-01-28] MEDS: INSULIN GLARGINE [LANTus] (100 UNITS/ML) SYG SC SCH (21:02)
[2019-01-29] VITALS: BP_SYST 105; BP_SYST 115; BP_DIAS 56; BP_DIAS 68; PULSE 67; PULSE 68; RESP 18; RESP 19
[2019-01-29] MEDS: ACCU-CHEK XX SCH (02:31)
[2019-01-29 03:47] VITALS: BP 119/65; PULSE 70; RESP 18
[2019-01-29 07:23] VITALS: BP 111/74; PULSE 83; RESP 20
[2019-01-29] MEDS: metFORMIN 500 MG TAB PO SCH ×2 (08:10→17:28)
[2019-01-29] MEDS: RIFAMPIN 300 MG CAP PO SCH (08:10)
[2019-01-29] MEDS: LINAGLIPTIN 5 MG TABLET PO SCH (08:10)
[2019-01-29] MEDS: FAMOTIDINE 20 MG TAB PO SCH ×2 (08:10→20:33)
[2019-01-29] MEDS: INSULIN ASPART [NOVOLOG] 3 ML PEN SC SCH ×7 (08:17→20:33)
[2019-01-29] MEDS: VANCOMYCIN 1.5 GM/NS 250 ML 250 ML IVPB SCH ×2 (08:37→16:53)
[2019-01-29] MEDS: MUPIROCIN 2% 22 GM OINT TOP SCH ×2 (08:38→21:00)
[2019-01-29] MEDS ORDERED: ALLOPURINOL 100 MG TAB ONE (08:41)
[2019-01-29] MEDS ORDERED: POTASSIUM CHLORIDE (SR) 20 MEQ TAB PO STA (09:14)
--- NOTE | 2019-01-29 11:08 | CONS ---
Assessment/Plan Assessment/Plan Hospital Course (Demo Recall) SUBJECTIVE: No acute changes, looks comfortable, no fevers MICROBIOLOGY: Culture of posterior neck drainage growing MRSA. MRSA swab positive. ANTIMICROBIALS: 1. Vancomycin. 2. Rifampin. INDWELLING: Right IJ triple-lumen catheter. PHYSICAL EXAMINATION: GENERAL: This is well-developed, well-nourished 28-year-old woman who is alert, in no distress. HEENT: Head atraumatic, normocephalic. Sclerae anicteric. NECK: Supple. The patient has significant swelling and erythema on the posterior part of the neck. There is some drainage present. HEART: S1, S2. ABDOMEN: Soft, bowel tones present. LUNGS: Clear. EXTREMITIES: Without cyanosis. ASSESSMENT: 1. S/p MRSA infected posterior neck abscess i/d. 2. Resolving leukocytosis. 3. Status post diabetic ketoacidosis. 4. Morbid obesity. 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 PLAN: Stable, continue abx, f/u surgical rec-s Consultation Date/Type/Reason Admit Date/Time Jan 24, 2019 at 10:14 Initial Consult Date Type of Consult id Date/Time of Note DATE: 01/29/19 TIME: 11:06 Exam/Review of Systems Exam Vitals Vital Signs Date Temp Pulse Resp B/P (MAP) Pulse Ox O2 O2 Flow FiO2 Time Delivery Rate 01/29/19 97.9 83 20 111/74 96 Room Air 07:23 (86) Intake and Output 01/28/19 01/28/19 01/29/19 1515:00 23:00 07:00 IntakeIntake Total 490 ml 710 ml 490 ml BalanceBalance 490 ml 710 ml 490 ml Results Result Diagram: 01/27/19 0543 01/29/19 0654 Results 24hrs Laboratory Tests Test 01/28/19 12:27 01/28/19 17:35 01/28/19 20:54 01/29/19 02:28 Bedside Glucose 233 H 154 124 130 Test 01/29/19 06:54 01/29/19 08:08 Sodium Level 142 Potassium Level 3.4 L Chloride Level 105 Carbon Dioxide Level 30 Anion Gap 7 Blood Urea Nitrogen 10 Creatinine 0.34 L Glucose Level 211 Calcium Level 8.3 L Phosphorus Level 3.5 Magnesium Level 1.7 Albumin 3.0 L Bedside Glucose 202 Medications Medication Current Medications Dextrose (D50w Syringe) 50 ml Q15M PRN IV For BS 50 or less; Start 01/24/19 at 11:00 Dextrose (D50w Syringe) 25 ml Q15M PRN IV BS between 50-70; Start 01/24/19 at 11:00 IV Flush (NS 3 ml) 3 ml PER PROTOCOL IV ; Start 01/24/19 at 11:00 Ondansetron HCl (Zofran Inj) 4 mg Q6H PRN IV NAUSEA/VOMITING Last administered on 01/24/19at 14:55; Admin Dose 4 MG; Start 01/24/19 at 11:00 Acetaminophen (Tylenol Tab) 650 mg Q6H PRN PO .PAIN 1-3 OR TEMP; Start 01/24/19 at 11:00 Acetaminophen/ Hydrocodone Bitart ([place] (5/325)) 1 tab Q6H PRN PO .PAIN 4-6 Last administered on 01/28/19at 20:54; Admin Dose 1 TAB; Start 01/24/19 at 11:00 Morphine Sulfate (morphine) 2 mg Q4H PRN IV .PAIN 7-10 Last administered on 01/26/19at 04:13; Admin Dose 2 MG; Start 01/24/19 at 11:00 Vancomycin HCl (Vanco Iv Per Pharmacy) VANCOMYCIN PER PHARMACY PER PROTOCOL XX ; Start 01/24/19 at 11:30 Diagnostic Test (Pha) (Accu-Chek) 1 ea 02 XX Last administered on 01/29/19at 02:31; Admin Dose 1 EA; Start 01/26/19 at 02:00 Insulin Aspart (Novolog Insulin Pen) NOVOLOG *MODERATE* ALGORITHM WITH MEALS BEDTIME SC Last administered on 01/29/19at 08:17; Admin Dose 4 UNIT; Start 01/25/19 at 07:55 Miscellaneous Information 1 ea NOTE XX ; Start 01/25/19 at 03:00 Glucose (Glutose) 15 gm Q15M PRN PO DECREASED GLUCOSE; Start 01/25/19 at 03:00 Glucose (Glutose) 22.5 gm Q15M PRN PO DECREASED GLUCOSE; Start 01/25/19 at 03:00 Glucagon (Glucagen) 1 mg Q15M PRN IM DECREASED GLUCOSE; Start 01/25/19 at 03:00 Glucose (Glutose) 15 gm Q15M PRN BUCCAL DECREASED GLUCOSE; Start 01/25/19 at 03:00 Famotidine (Pepcid) 20 mg Q12 PO Last administered on 01/29/19 08:10; Admin Dose 20 MG; Start 01/25/19 at 21:00 Vancomycin/Sodium Chloride 250 ml @ 83.333 mls/ hr Q8H IVPB Last administered on 01/29/19 08:37; Admin Dose 83.333 MLS/HR; Start 01/26/19 at 00:00 Insulin Aspart (Novolog Insulin Pen) 15 unit WITH MEALS SC Last administered on 01/29/19 08:17; Admin Dose 15 UNIT; Start 01/26/19 at 11:50 Insulin Glargine (Lantus) 55 units DAILY@2000 SC Last administered on 01/28/19 21:02; Admin Dose 55 UNITS; Start 01/26/19 at 20:00 Mupirocin (Bactroban) 1 applic BID TOP Last administered on 01/29/19 08:38; Admin Dose 1 APPLIC; Start 01/27/19 at 13:00; Stop 02/03/19 at 12:59 Rifampin (Rifampin) 600 mg DAILY PO Last administered on 01/29/19 08:10; Admin Dose 600 MG; Start 01/27/19 at 16:00 Miscellaneous Information (*Rx Drug Level Order Reminder*) VANCOMYCIN TROUGH AT 2300 2300 ONCE XX ; Start 01/29/19 at 23:00; Stop 01/29/19 at 23:01 Linagliptin (Tradjenta) 5 mg DAILY PO Last administered on 01/29/19 08:10; Admin Dose 5 MG; Start 01/29/19 at 09:00 Metformin HCl (Glucophage) 1,000 mg BID WITH MEALS PO Last administered on 01/29/19 08:10; Admin Dose 1,000 MG; Start 01/28/19 at 17:55 CH[place] CUELLAR NP Jan 29, 2019 11:08
[2019-01-29 11:09] VITALS: BP 131/89; PULSE 94; RESP 20
--- NOTE | 2019-01-29 12:54 | PN ---
Date/Time of Note Date/Time of Note DATE: 01/29/19 TIME: 12:46 Assessment/Plan VTE Prophylaxis Risk score (from Nsg)>0 risk: 3 SCD applied (from Nsg): Yes Pharmacological prophylaxis: NA/contraindicated Pharm contraindication: low risk/ambulating Lines/Catheters IV Catheter Type (from Nrsg): Central Line Central line still needed: Yes Urinary Cath still in place: No Assessment/Plan Assessment/Plan 1. Posterior neck cellulitis s/p I&D on 01/28/19 - Gen Surgery consultation appreciated and pt had I&D performed. Will continue local wound care - MRSA growing on wound cultures - ENT consultation appreciated. no intervention at this time - ID on board and appreciate recommendations. Currently on Vancomycin and Rifampin. Will change to Bactrim prior to d/c - Wound care consultation appreciated 2. Diabetic ketoacidosis- resolved - due to infection at base of neck 3. DM - A1c noted - continue adjust Insulin as needed - DM education consultation appreciated. Started on Tradjenta and Metformin for better glucose control. Given insurance will need prescription for vials of insulin upon discharge 4. Generalized weakness, resolved - Secondary to above DKA 5. Disposition - s/p I&D neck abscess. CM consulted for home health with wound care. Once arrangements made, will d/c home - will downgrade to Med/Surg Result Diagram: 01/27/19 0543 01/29/19 0654 Results 24hrs Laboratory Tests Test 01/28/19 17:35 01/28/19 20:54 01/29/19 02:28 01/29/19 06:54 Bedside Glucose 154 124 130 Sodium Level 142 Potassium Level 3.4 L Chloride Level 105 Carbon Dioxide Level 30 Anion Gap 7 Blood Urea Nitrogen 10 Creatinine 0.34 L Glucose Level 211 Calcium Level 8.3 L Phosphorus Level 3.5 Magnesium Level 1.7 Albumin 3.0 L Test 01/29/19 08:08 01/29/19 11:32 01/29/19 12:34 Bedside Glucose 202 123 96 Subjective 24 Hr Interval Summary Free Text/Dictation Patient states shes doing okay but still concerned about her sugars in the 200s. She denies needing any pain control. Exam/Review of Systems Exam Vitals Vital Signs Date Temp Pulse Resp B/P (MAP) Pulse Ox O2 O2 Flow FiO2 Time Delivery Rate 01/29/19 98.2 94 20 131/89 99 Room Air 11:09 (103) Intake and Output 01/28/19 01/28/19 01/29/19 1515:00 23:00 07:00 IntakeIntake Total 490 ml 710 ml 490 ml BalanceBalance 490 ml 710 ml 490 ml Exam General: Patient is laying in bed and answers questions appropriately Eyes: EOMI, pupils reactive to light Neck: Supple, nontender, midline. dressing in place Respiratory: Clear to auscultation bilaterally. no wheezing or rhonchi Cardiovascular: regular rate and rhythm, no obvious murmurs Gastrointestinal: soft, non-tender to palpation, bowel sounds heard. Neurological: Moves all extremities spontaneously Skin: serous drainage noted on gauze at base of neck. Results Results 24hrs Laboratory Tests Test 01/28/19 17:35 01/28/19 20:54 01/29/19 02:28 01/29/19 06:54 Bedside Glucose 154 124 130 Sodium Level 142 Potassium Level 3.4 L Chloride Level 105 Carbon Dioxide Level 30 Anion Gap 7 Blood Urea Nitrogen 10 Creatinine 0.34 L Glucose Level 211 Calcium Level 8.3 L Phosphorus Level 3.5 Magnesium Level 1.7 Albumin 3.0 L Test 01/29/19 08:08 01/29/19 11:32 01/29/19 12:34 Bedside Glucose 202 123 96 Medications Medication Current Medications Dextrose (D50w Syringe) 50 ml Q15M PRN IV For BS 50 or less; Start 01/24/19 at 11:00 Dextrose (D50w Syringe) 25 ml Q15M PRN IV BS between 50-70; Start 01/24/19 at 11:00 IV Flush (NS 3 ml) 3 ml PER PROTOCOL IV ; Start 01/24/19 at 11:00 Ondansetron HCl (Zofran Inj) 4 mg Q6H PRN IV NAUSEA/VOMITING Last administered on 01/24/19at 14:55; Admin Dose 4 MG; Start 01/24/19 at 11:00 Acetaminophen (Tylenol Tab) 650 mg Q6H PRN PO .PAIN 1-3 OR TEMP; Start 01/24/19 at 11:00 Acetaminophen/ Hydrocodone Bitart ([place] (5/325)) 1 tab Q6H PRN PO .PAIN 4-6 Last administered on 01/28/19at 20:54; Admin Dose 1 TAB; Start 01/24/19 at 11:00 Morphine Sulfate (morphine) 2 mg Q4H PRN IV .PAIN 7-10 Last administered on 01/26/19at 04:13; Admin Dose 2 MG; Start 01/24/19 at 11:00 Vancomycin HCl (Vanco Iv Per Pharmacy) VANCOMYCIN PER PHARMACY PER PROTOCOL XX ; Start 01/24/19 at 11:30 Diagnostic Test (Pha) (Accu-Chek) 1 ea 02 XX Last administered on 01/29/19at 02:31; Admin Dose 1 EA; Start 01/26/19 at 02:00 Insulin Aspart (Novolog Insulin Pen) NOVOLOG *MODERATE* ALGORITHM WITH MEALS BEDTIME SC Last administered on 01/29/19 08:17; Admin Dose 4 UNIT; Start 01/25/19 at 07:55 Miscellaneous Information 1 ea NOTE XX ; Start 01/25/19 at 03:00 Glucose (Glutose) 15 gm Q15M PRN PO DECREASED GLUCOSE; Start 01/25/19 at 03:00 Glucose (Glutose) 22.5 gm Q15M PRN PO DECREASED GLUCOSE; Start 01/25/19 at 03:00 Glucagon (Glucagen) 1 mg Q15M PRN IM DECREASED GLUCOSE; Start 01/25/19 at 03:00 Glucose (Glutose) 15 gm Q15M PRN BUCCAL DECREASED GLUCOSE; Start 01/25/19 at 03:00 Famotidine (Pepcid) 20 mg Q12 PO Last administered on 01/29/19 08:10; Admin Dose 20 MG; Start 01/25/19 at 21:00 Vancomycin/Sodium Chloride 250 ml @ 83.333 mls/ hr Q8H IVPB Last administered on 01/29/19 08:37; Admin Dose 83.333 MLS/HR; Start 01/26/19 at 00:00 Insulin Aspart (Novolog Insulin Pen) 15 unit WITH MEALS SC Last administered on 01/29/19 12:40; Admin Dose 15 UNIT; Start 01/26/19 at 11:50 Insulin Glargine (Lantus) 55 units DAILY@2000 SC Last administered on 01/28/19 21:02; Admin Dose 55 UNITS; Start 01/26/19 at 20:00 Mupirocin (Bactroban) 1 applic BID TOP Last administered on 7/24/19at 08:38; Admin Dose 1 APPLIC; Start 01/27/19 at 13:00; Stop 02/03/19 at 12:59 Rifampin (Rifampin) 600 mg DAILY PO Last administered on 01/29/19 08:10; Admin Dose 600 MG; Start 01/27/19 at 16:00 Miscellaneous Information (*Rx Drug Level Order Reminder*) VANCOMYCIN TROUGH AT 2300 2300 ONCE XX ; Start 01/29/19 at 23:00; Stop 01/29/19 at 23:01 Linagliptin (Tradjenta) 5 mg DAILY PO Last administered on 01/29/19 08:10; Admin Dose 5 MG; Start 01/29/19 at 09:00 Metformin HCl (Glucophage) 1,000 mg BID WITH MEALS PO Last administered on 01/29/19 08:10; Admin Dose 1,000 MG; Start 01/28/19 at 17:55 MARCOS SANDERS MD Jan 29, 2019 12:54
[2019-01-29] MEDS: INSULIN GLARGINE [LANTus] (100 UNITS/ML) SYG SC SCH (20:33)
[2019-01-29 20:37] VITALS: BP 103/54; PULSE 83; RESP 18
[2019-01-30] MEDS: VANCOMYCIN 1.5 GM/NS 250 ML 250 ML IVPB SCH ×2 (00:34→08:43)
[2019-01-30] MEDS: ACCU-CHEK XX SCH (02:00)
[2019-01-30 03:00] VITALS: BP 118/73; PULSE 79; RESP 16
[2019-01-30 08:13] VITALS: BP 119/82; PULSE 88; RESP 18
[2019-01-30] MEDS: FAMOTIDINE 20 MG TAB PO SCH (08:43)
[2019-01-30] MEDS: RIFAMPIN 300 MG CAP PO SCH (08:43)
[2019-01-30] MEDS: metFORMIN 500 MG TAB PO SCH (08:43)
[2019-01-30] MEDS: LINAGLIPTIN 5 MG TABLET PO SCH (08:43)
[2019-01-30] MEDS: INSULIN ASPART [NOVOLOG] 3 ML PEN SC SCH ×4 (08:45→12:34)
[2019-01-30] MEDS: MUPIROCIN 2% 22 GM OINT TOP SCH (09:06)
--- NOTE | 2019-01-30 09:54 | PN ---
Date/Time of Note Date/Time of Note DATE: 01/30/19 TIME: 09:52 Assessment/Plan VTE Prophylaxis Risk score (from Ns)>0 risk: 3 SCD applied (from [facility]): No SCD contraindicated: low risk/ambulating Pharmacological prophylaxis: NA/contraindicated Pharm contraindication: low risk/ambulating Lines/Catheters [facility] Type (from [facility] Central Line Central line still needed: No Urinary Cath still in place: No Assessment/Plan Assessment/Plan 1. Posterior neck cellulitis s/p I&D on 01/28/19 - Gen Surgery consultation appreciated and pt had I&D performed. Will continue local wound care - Wound care consultation appreciated and recommending packing of wound with santyl with NS wet gauze and cover with foam dressing - MRSA growing on wound cultures - ENT consultation appreciated. no intervention at this time - ID on board and appreciate recommendations. Currently on Vancomycin and Rifampin. Will change to Bactrim prior to d/c - Wound care consultation appreciated 2. Diabetic ketoacidosis- resolved - due to infection at base of neck 3. DM - A1c noted - continue adjust Insulin as needed - DM education consultation appreciated. Started on Tradjenta and Metformin for better glucose control. Given insurance will need prescription for vials of insulin upon discharge 4. Generalized weakness, resolved - Secondary to above DKA 5. Disposition - Medically stable for discharge home Result Diagram: 01/30/19 0609 01/29/19 0654 Results 24hrs Laboratory Tests Test 01/29/19 11:32 01/29/19 12:34 01/29/19 17:18 01/29/19 20:18 Bedside Glucose 123 96 104 104 Test 01/29/19 22:55 01/30/19 06:09 01/30/19 07:52 Vancomycin Level 13.2 Trough White Blood Count 8.6 Red Blood Count 3.82 L Hemoglobin 10.7 L Hematocrit 33.1 L Mean Corpuscular 86.6 Volume Mean Corpuscular 28.0 L Hemoglobin Mean Corpuscular 32.3 Hemoglobin Concent Red Cell 12.0 Distribution Width Platelet Count 407 # Mean Platelet Volume 9.8 Immature 1.900 H Granulocytes % Neutrophils % 56.5 Lymphocytes % 29.1 Monocytes % 9.4 Eosinophils % 2.7 Basophils % 0.4 Nucleated Red Blood 0.0 Cells % Immature 0.160 H Granulocytes # Neutrophils # 4.8 Lymphocytes # 2.5 Monocytes # 0.8 Eosinophils # 0.2 Basophils # 0.0 Nucleated Red Blood 0.0 Cells # Bedside Glucose 216 Subjective 24 Hr Interval Summary Free Text/Dictation Patient is doing well and denies any new issues. No acute overnight events. Exam/Review of Systems Exam Vitals Vital Signs Date Temp Pulse Resp B/P (MAP) Pulse Ox O2 O2 Flow FiO2 Time Delivery Rate 01/30/19 98.5 88 18 119/82 95 Room Air 08:13 (94) Intake and Output 01/29/19 01/29/19 01/30/19 1414:59 22:59 06:59 IntakeIntake Total 480 ml 250.00 ml 500 ml BalanceBalance 480 ml 250.00 ml 500 ml Exam General: Patient is laying in bed and answers questions appropriately Eyes: EOMI, pupils reactive to light Neck: Supple, nontender, midline. dressing in place Respiratory: Clear to auscultation bilaterally. no wheezing or rhonchi Cardiovascular: regular rate and rhythm, no obvious murmurs Gastrointestinal: soft, non-tender to palpation, bowel sounds heard. Neurological: Moves all extremities spontaneously Skin: foam dressing on posterior neck with no discharge or drainage Results Results 24hrs Laboratory Tests Test 01/29/19 11:32 01/29/19 12:34 01/29/19 17:18 01/29/19 20:18 Bedside Glucose 123 96 104 104 Test 01/29/19 22:55 01/30/19 06:09 01/30/19 07:52 Vancomycin Level 13.2 Trough White Blood Count 8.6 Red Blood Count 3.82 L Hemoglobin 10.7 L Hematocrit 33.1 L Mean Corpuscular 86.6 Volume Mean Corpuscular 28.0 L Hemoglobin Mean Corpuscular 32.3 Hemoglobin Concent Red Cell 12.0 Distribution Width Platelet Count 407 # Mean Platelet Volume 9.8 Immature 1.900 H Granulocytes % Neutrophils % 56.5 Lymphocytes % 29.1 Monocytes % 9.4 Eosinophils % 2.7 Basophils % 0.4 Nucleated Red Blood 0.0 Cells % Immature 0.160 H Granulocytes # Neutrophils # 4.8 Lymphocytes # 2.5 Monocytes # 0.8 Eosinophils # 0.2 Basophils # 0.0 Nucleated Red Blood 0.0 Cells # Bedside Glucose 216 Medications Medication Current Medications Dextrose (D50w Syringe) 50 ml Q15M PRN IV For BS 50 or less; Start 01/24/19 at 11:00 Dextrose (D50w Syringe) 25 ml Q15M PRN IV BS between 50-70; Start 01/24/19 at 11:00 IV Flush (NS 3 ml) 3 ml PER PROTOCOL IV ; Start 01/24/19 at 11:00 Ondansetron HCl (Zofran Inj) 4 mg Q6H PRN IV NAUSEA/VOMITING Last administered on 01/24/19at 14:55; Admin Dose 4 MG; Start 01/24/19 at 11:00 Acetaminophen (Tylenol Tab) 650 mg Q6H PRN PO .PAIN 1-3 OR TEMP Last administered on 01/29/19 22:15; Admin Dose 650 MG; Start 01/24/19 at 11:00 Acetaminophen/ Hydrocodone Bitart ([place] (5/325)) 1 tab Q6H PRN PO .PAIN 4-6 Last administered on 01/28/19 20:54; Admin Dose 1 TAB; Start 01/24/19 at 11:00 Morphine Sulfate (morphine) 2 mg Q4H PRN IV .PAIN 7-10 Last administered on 01/26/19at 04:13; Admin Dose 2 MG; Start 01/24/19 at 11:00 Vancomycin HCl (Vanco Iv Per Pharmacy) VANCOMYCIN PER PHARMACY PER PROTOCOL XX ; Start 01/24/19 at 11:30 Diagnostic Test (Pha) (Accu-Chek) 1 ea 02 XX Last administered on 01/29/19at 02:31; Admin Dose 1 EA; Start 01/26/19 at 02:00 Insulin Aspart (Novolog Insulin Pen) NOVOLOG *MODERATE* ALGORITHM WITH MEALS BEDTIME SC Last administered on 01/30/19at 08:56; Admin Dose 4 UNIT; Start 01/25/19 at 07:55 Miscellaneous Information 1 ea NOTE XX ; Start 01/25/19 at 03:00 Glucose (Glutose) 15 gm Q15M PRN PO DECREASED GLUCOSE; Start 01/25/19 at 03:00 Glucose (Glutose) 22.5 gm Q15M PRN PO DECREASED GLUCOSE; Start 01/25/19 at 03:00 Glucagon (Glucagen) 1 mg Q15M PRN IM DECREASED GLUCOSE; Start 01/25/19 at 03:00 Glucose (Glutose) 15 gm Q15M PRN BUCCAL DECREASED GLUCOSE; Start 01/25/19 at 03:00 Famotidine (Pepcid) 20 mg Q12 PO Last administered on 01/30/19 08:43; Admin D ose 20 MG; Start 01/25/19 at 21:00 Vancomycin/Sodium Chloride 250 ml @ 83.333 mls/ hr Q8H IVPB Last administered on 01/30/19 08:43; Admin Dose 83.333 MLS/HR; Start 01/26/19 at 00:00 Insulin Aspart (Novolog Insulin Pen) 15 unit WITH MEALS SC Last administered on 01/30/19 08:45; Admin Dose 15 UNIT; Start 01/26/19 at 11:50 Insulin Glargine (Lantus) 55 units DAILY@2000 SC Last administered on 01/29/19 20:33; Admin Dose 55 UNITS; Start 01/26/19 at 20:00 Mupirocin (Bactroban) 1 applic BID TOP Last administered on 01/30/19 09:06; Admin Dose 1 APPLIC; Start 01/27/19 at 13:00; Stop 02/03/19 at 12:59 Rifampin (Rifampin) 600 mg DAILY PO Last administered on 01/30/19 08:43; Admin Dose 600 MG; Start 01/27/19 at 16:00 Linagliptin (Tradjenta) 5 mg DAILY PO Last administered on 01/30/19 08:43; Admin Dose 5 MG; Start 01/29/19 at 09:00 Metformin HCl (Glucophage) 1,000 mg BID WITH MEALS PO Last administered on 01/30/19 08:43; Admin Dose 1,000 MG; Start 01/28/19 at 17:55 Collagenase (Santyl) 1 applic DAILY TOP ; Start 01/30/19 at 10:00 MARCOS SANDERS MD Jan 30, 2019 09:54
[2019-01-30] MEDS ORDERED: COLLAGENASE 5 GM (UD JAR) TOP SCH (10:00)
[2019-01-30] MEDS ORDERED: HYDR-3601 PO (10:05)
[2019-01-30] MEDS ORDERED: MTF1000T PO (10:05)
[2019-01-30] MEDS ORDERED: insulin needles (10:05)
[2019-01-30] MEDS ORDERED: Insulin Glargine SC (10:05)
[2019-01-30] MEDS ORDERED: SAN30GM TOP (10:05)
[2019-01-30] MEDS ORDERED: glucose test strips (10:05)
[2019-01-30] MEDS ORDERED: LINA5TAB PO (10:05)
[2019-01-30] MEDS ORDERED: SULF1TAB31 PO (10:09)
--- NOTE | 2019-01-30 10:12 | PDOCDIS ---
Discharge Instructions DIAGNOSIS Discharge Diagnosis 1. Posterior neck cellulitis s/p I&D on 01/28/19 2. Diabetic ketoacidosis- resolved 3. DM 4. Generalized weakness, resolved CONDITION [id number] Patient Condition: [id number] Stable HOME CARE INSTRUCTIONS: [id number] Special Diet: [id number] diabetic diet ACTIVITY: [id number] Activity Restrictions: [id number] No Restrictions FOLLOW UP/APPOINTMENTS Follow-up Plan 1. Follow up with your primary care physician in 1-[address] Mike Weldon is a PCP as well if you would like to call his office to establish care 2. Continue all medications as prescribed 3. You will need to continue on Bactrim twice a day for 14 days with next dose tonight, 01/30 4. You will need to take Metformin twice a day and Tradjenta daily for sugar control 5. Use Insulin Glargine twice a day, 23 units in the am and pm. Continue all recommendations per our hospice educator for better sugar control 6. Follow a low sugar, low carb diet and increase physical activity as tolerated 7. If experiencing any concerning symptoms, please return to the emergency department 8. You will have wound care nurses come to your house. You will need to continue packing the wound with santyl and normal saline wet gauze. Cover with foam dressing. make sure to keep area clean and dry REFERRALS Other Referrals Mike Weldon MD Specialty Internal Medicine Comments Office Address [address] [facility] [address] [place], [place] [id number] Office MARCOS SANDERS MD Jan 30, 2019 10:12
--- NOTE | 2019-01-30 10:38 | CONS ---
Assessment/Plan Assessment/Plan Hospital Course (Demo Recall) SUBJECTIVE: No acute changes, no fevers MICROBIOLOGY: Culture of posterior neck drainage growing MRSA. MRSA swab positive. ANTIMICROBIALS: 1. Vancomycin. 2. Rifampin. INDWELLING: Right IJ triple-lumen catheter. PHYSICAL EXAMINATION: GENERAL: This is well-developed, well-nourished 28-year-old woman who is alert, in no distress. HEENT: Head atraumatic, normocephalic. Sclerae anicteric. NECK: Supple. The patient has significant swelling and erythema on the posterior part of the neck. There is some drainage present. HEART: S1, S2. ABDOMEN: Soft, bowel tones present. LUNGS: Clear. EXTREMITIES: Without cyanosis. ASSESSMENT: 1. S/p MRSA infected posterior neck abscess i/d. 2. Resolving leukocytosis. 3. Status post diabetic ketoacidosis. 4. Morbid obesity. 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 PLAN: Remains stable, continue abx, anticipate dc on oral Bactrim for 2 weeks once cleared by surgery Consultation Date/Type/Reason Admit Date/Time Jan 24, 2019 at 10:14 Initial Consult Date Type of Consult id Date/Time of Note DATE: 01/30/19 TIME: 10:37 Exam/Review of Systems Exam Vitals Vital Signs Date Temp Pulse Resp B/P (MAP) Pulse Ox O2 O2 Flow FiO2 Time Delivery Rate 01/30/19 98.5 88 18 119/82 95 Room Air 08:13 (94) Intake and Output 01/29/19 01/29/19 01/30/19 1515:00 23:00 07:00 IntakeIntake Total 480 ml 250.00 ml 500 ml BalanceBalance 480 ml 250.00 ml 500 ml Results Result Diagram: 01/30/19 0609 01/29/19 0654 Results 24hrs Laboratory Tests Test 01/29/19 11:32 01/29/19 12:34 01/29/19 17:18 01/29/19 20:18 Bedside Glucose 123 96 104 104 Test 01/29/19 22:55 01/30/19 06:09 01/30/19 07:52 Vancomycin Level 13.2 Trough White Blood Count 8.6 Red Blood Count 3.82 L Hemoglobin 10.7 L Hematocrit 33.1 L Mean Corpuscular 86.6 Volume Mean Corpuscular 28.0 L Hemoglobin Mean Corpuscular 32.3 Hemoglobin Concent Red Cell 12.0 Distribution Width Platelet Count 407 # Mean Platelet Volume 9.8 Immature 1.900 H Granulocytes % Neutrophils % 56.5 Lymphocytes % 29.1 Monocytes % 9.4 Eosinophils % 2.7 Basophils % 0.4 Nucleated Red Blood 0.0 Cells % Immature 0.160 H Granulocytes # Neutrophils # 4.8 Lymphocytes # 2.5 Monocytes # 0.8 Eosinophils # 0.2 Basophils # 0.0 Nucleated Red Blood 0.0 Cells # Bedside Glucose 216 Medications Medication Current Medications Dextrose (D50w Syringe) 50 ml Q15M PRN IV For BS 50 or less; Start 01/24/19 at 11:00 Dextrose (D50w Syringe) 25 ml Q15M PRN IV BS between 50-70; Start 01/24/19 at 11:00 IV Flush (NS 3 ml) 3 ml PER PROTOCOL IV ; Start 01/24/19 at 11:00 Ondansetron HCl (Zofran Inj) 4 mg Q6H PRN IV NAUSEA/VOMITING Last administered on 01/24/19at 14:55; Admin Dose 4 MG; Start 01/24/19 at 11:00 Acetaminophen (Tylenol Tab) 650 mg Q6H PRN PO .PAIN 1-3 OR TEMP Last administered on 01/29/19 22:15; Admin Dose 650 MG; Start 01/24/19 at 11:00 Acetaminophen/ Hydrocodone Bitart ([place] (5/325)) 1 tab Q6H PRN PO .PAIN 4-6 Last administered on 01/28/19 20:54; Admin Dose 1 TAB; Start 01/24/19 at 11:00 Morphine Sulfate (morphine) 2 mg Q4H PRN IV .PAIN 7-10 Last administered on 01/07 04:13; Admin Dose 2 MG; Start 01/24/19 at 11:00 Vancomycin HCl (Vanco Iv Per Pharmacy) VANCOMYCIN PER PHARMACY PER PROTOCOL XX ; Start 01/24/19 at 11:30 Diagnostic Test (Pha) (Accu-Chek) 1 ea XX Last administered on 01/29/19 02:31; Admin Dose 1 EA; Start 01/26/19 at 02:00 Insulin Aspart (Novolog Insulin Pen) NOVOLOG *MODERATE* ALGORITHM WITH MEALS BEDTIME SC Last administered on 01/30/19 08:56; Admin Dose 4 UNIT; Start 01/25/19 at 07:55 Miscellaneous Information 1 ea NOTE XX ; Start 01/25/19 at 03:00 Glucose (Glutose) 15 gm Q15M PRN PO DECREASED GLUCOSE; Start 01/25/19 at 03:00 Glucose (Glutose) 22.5 gm Q15M PRN PO DECREASED GLUCOSE; Start 01/25/19 at 03:00 Glucagon (Glucagen) 1 mg Q15M PRN IM DECREASED GLUCOSE; Start 01/25/19 at 03:00 Glucose (Glutose) 15 gm Q15M PRN BUCCAL DECREASED GLUCOSE; Start 01/25/19 at 03:00 Famotidine (Pepcid) 20 mg Q12 PO Last administered on 01/30/19 08:43; Admin Dose 20 MG; Start 01/25/19 at 21:00 Vancomycin/Sodium Chloride 250 ml @ 83.333 mls/ hr Q8H IVPB Last administered on 01/30/19 08:43; Admin Dose 83.333 MLS/HR; Start 01/26/19 at 00:00 Insulin Aspart (Novolog Insulin Pen) 15 unit WITH MEALS SC Last administered on 01/30/19 08:45; Admin Dose 15 UNIT; Start 01/26/19 at 11:50 Insulin Glargine (Lantus) 55 units DAILY@2000 SC Last administered on 01/29/19 20:33; Admin Dose 55 UNITS; Start 01/26/19 at 20:00 Mupirocin (Bactroban) 1 applic BID TOP Last administered on 01/30/19 09:06; Admin Dose 1 APPLIC; Start 01/27/19 at 13:00; Stop 02/03/19 at 12:59 Rifampin (Rifampin) 600 mg DAILY PO Last administered on 01/30/19 08:43; Admin Dose 600 MG; Start 01/27/19 at 16:00 Linagliptin (Tradjenta) 5 mg DAILY PO Last administered on 01/30/19 08:43; Admin Dose 5 MG; Start 01/29/19 at 09:00 Metformin HCl (Glucophage) 1,000 mg BID WITH MEALS PO Last administered on 01/30/19 08:43; Admin Dose 1,000 MG; Start 01/28/19 at 17:55 Collagenase (Santyl) 1 applic DAILY TOP ; Start 01/30/19 at 10:00 CHINA CUELLAR NP Jan 30, 2019 10:38
--- NOTE | 2019-01-30 16:38 | DS ---
Date/Time of Note Date/Time of Note DATE: 01/30/19 TIME: 16:29 Discharge Summary Admission/Discharge Info Admit Date/Time Jan 24, 2019 at 10:14 Discharge Date/Time Jan 30, 2019 at 15:07 Discharge Diagnosis 1. Posterior neck cellulitis s/p I&D on 01/28/19 2. Diabetic ketoacidosis- resolved 3. DM 4. Generalized weakness, resolved Patient Condition: Stable Consults Infectious disease- Dr. Martinez General Surgery- Dr. [place] market consultant Procedures Date/Time of Note Date/Time of Note DATE: 01/28/19 TIME: 13:34 Operative Report Procedure Date: Jan 28, 2019 Preoperative Diagnosis Base of the neck abscess Postoperative Diagnosis The same Operation/Procedure Performed Bedside incision and drainage of the neck abscess Hx of Present Illness Patient is a female the past medical history significant for insulin-dependent diabetes mellitus who presents to [facility] for neck pain with drainage. Patient states that she has had neck pain due to a pustular mass for approximately 4 days that is getting worse. Patient stated that this origi juan pablo began with as a pimple. Patient currently is extremely weak and cannot speak in extensive sentences however is alert and oriented. Patient denies chest pain, shortness of breath, headache, abdominal pain, leg pain. Hospital Course Patient was admitted to ICU for treatment of DKA which was most likely secondary to sepsis from neck cellulitis. Initial imaging of neck showed no abscess formation and ENT did not recommend any intervention. ID was consulted for antibiotic recommendations. Patients DKA resolved and was transitioned to Insulin SC. She was transferred to telemetry for close monitoring and neck cellulitis was monitored with improvement. Wound care was consulted and noticed increased drainage from posterior neck wound. General surgery was consulted and bedside I&D was performed. Patients sugars improved after seam hammerer recommendations. She was found to have MRSA in the neck wound and transitioned to PO Bactrim prior to discharge. Patient was discharged home with home health services for wound care. Patients vitals remained stable prior to discharge. Home Meds Active Scripts Sulfamethoxazole/Trimethoprim* (Bactrim Ds* Tablet) 1 Each Tablet, 1 TAB PO BID for 14 Days, #27 TAB Prov:MARCOS SANDERS MD 01/30/19 [insulin needles] No Conflict Check, MARLINE Posey, #120 1 Refill Prov:MARCOS SANDERS MD 01/30/19 [glucose test strips] No Conflict Check, STRIP AC BREAKFAST BEDTIME, #120 Prov:MARCOS SANDERS MD 01/30/19 Collagenase* (Santyl*) 30 Gm Oint..gm., 1 APPLIC TOP DAILY for 30 Days, #1 TUB Prov:MARCOS SANDERS MD 01/30/19 Metformin* (Glucophage*) 1,000 Mg Tablet, 1000 MG PO BID for 30 Days, #60 TAB Prov:MARCOS SANDERS MD 01/30/19 Linagliptin (TRADJENTA) 5 Mg Tablet, 5 MG PO DAILY for 30 Days, #30 TAB 2 Refills Prov:MARCOS SANDERS MD 01/30/19 [Insulin Glargine] 100 UNITS/ML SOLN No Conflict Check, 23 UNITS SC BID for 30 Days, #15 VIAL 1 Refill Prov:MARCOS SANDERS MD 01/30/19 Hydrocodone Bit-Acetaminophen (Hydrocodone Bit-APAP) 5-325MG Tablet, 1 TAB PO Q6H PRN for .PAIN 4-6 for 7 Days, #30 TAB Prov:MARCOS SANDERS MD 01/30/19 Discontinued Reported Medications Insulin Glargine,Hum.rec.anlog (Basaglar Kwikpen U-100) 100 Unit/1 Ml Insuln.pen, 125 UNIT SC QHS, EA 01/24/19 Insulin Lispro (Humalog Kwikpen) 200 Unit/1 Ml Insuln.pen, 20-30 UNIT SQ WITH MEALS BEDTIME, EA 01/24/19 Follow-up Plan 1. Follow up with your primary care physician in 1-[address] Mike Weldon is a PCP as well if you would like to call his office to establish care 2. Continue all medications as prescribed 3. You will need to continue on Bactrim twice a day for 14 days with next dose tonight, 01/30 4. You will need to take Metformin twice a day and Tradjenta daily for sugar control 5. Use Insulin Glargine twice a day, 23 units in the am and pm. Continue all re commendations per our market consultant for better sugar control 6. Follow a low sugar, low carb diet and increase physical activity as tolerated 7. If experiencing any concerning symptoms, please return to the emergency department 8. You will have wound care nurses come to your house. You will need to continue packing the wound with santyl and normal saline wet gauze. Cover with foam dressing. make sure to keep area clean and dry Primary Care Provider Care Physician No Primary Time spent on discharge: > 30 minutes Pending Labs Laboratory Tests Test 01/29/19 17:18 01/29/19 20:18 01/29/19 22:55 01/30/19 06:09 Bedside 104 104 Glucose mg/dL (70-220) mg/dL (70-220) Vancomycin 13.2 Level Trough ug/ml (10.0-20 .0) White Blood 8.6 Count 10^3/ul (4.8-1 0.8) Red Blood 3.82 Count 10^6/ul (4.20- 5.40) Hemoglobin 10.7 g/dl (12.0-16. 0) Hematocrit 33.1 % (37.0-47.0) Mean 86.6 Corpuscular fl (82.0-101.0 Volume ) Mean 28.0 Corpuscular pg (29.0-33.0) Hemoglobin Mean 32.3 Corpuscular g/dl (32.0-37. Hemoglobin Conc 0) ent Red Cell 12.0 Distribution % (11.5-14.5) Width Platelet Count 407 10^3/UL (140-4 15) Mean Platelet 9.8 Volume fl (7.4-10.4) Immature 1.900 Granulocytes % % (0.001-0.429 ) Neutrophils % 56.5 % (39.0-77.0) Lymphocytes % 29.1 % (15.0-51.0) Monocytes % 9.4 % (0.0-11.0) Eosinophils % 2.7 % (0.0-7.0) Basophils % 0.4 % (0.0-2.0) Nucleated Red 0.0 Blood Cells % /100WBC (0.0-0 .0) Immature 0.160 Granulocytes # 10^3/ul (0.0-0 .031) Neutrophils # 4.8 10^3/ul (1.6-7 .5) Lymphocytes # 2.5 10^3/ul (0.8-2 .9) Monocytes # 0.8 10^3/ul (0.3-0 .9) Eosinophils # 0.2 10^3/ul (0.0-0 .5) Basophils # 0.0 10^3/ul (0.0-0 .1) Nucleated Red 0.0 Blood Cells # 10^3/ul (0.0-0 .0) Test 01/30/19 07:52 01/30/19 12:07 Bedside 216 133 Glucose mg/dL (70-220) mg/dL (70-220) MARCOS SANDERS MD Jan 30, 2019 16:37
== END 2019-01-30 15:07 | disposition home health service (06) | DRG 853 ==
LOC: E/R 05:36 → TEL 10:14 → SUATTDRO 10:52 → CANRESERV 22:07 → EDBEDREQSVC 01-25 02:19 → EDBEDREQ 01-25 02:19 → PP2 01-29 15:35
PROVIDERS: ADMIT Internal Medicine; ATTEND Internal Medicine
PROC: 0W960ZZ Drainage of Neck, Open Approach (ICD-10-PCS; principal; 2019-01-28)
PROC: 02H633Z Insertion of Infusion Device into Right Atrium, Percutaneous Approach (ICD-10-PCS; 2019-01-28)
PROC: B244ZZZ Ultrasonography of Right Heart (ICD-10-PCS; 2019-01-28)
DX: A41.9 Sepsis, unspecified organism (principal); E11.10 Type 2 diabetes mellitus with ketoacidosis without coma; L02.11 Cutaneous abscess of neck; L03.221 Cellulitis of neck; R53.1 Weakness; E66.9 Obesity, unspecified; Z68.33 Body mass index [BMI] 33.0-33.9, adult; E87.5 Hyperkalemia; B95.62 Methicillin resistant Staphylococcus aureus infection as the cause of diseases classified elsewhere; Z22.322 Carrier or suspected carrier of Methicillin resistant Staphylococcus aureus
CPT/HCPCS: 36415; 70490; 71045; 76536; 76937; 80048; 80053; 80069; 80202; 81001; 81005; 81025; 82010; 82803; 82962; 83036; 83605; 83735; 84100; 84484; 85025; 85610; 87070; 87081; 93005; 96374; 96375; 96376; C1751; J0692; J0696; J1815; J2270; J2405; J2543; J3370; J3480; J7030; J7040; J7050; J7120; Q9967